=== PATIENT | female | born 1940 | race Caucasian/White ===

== ENCOUNTER 2016-09-23 11:45 | Inpatient (IN) | payer MEDICARE, BC ==
[2016-09-23] MEDS ORDERED: Ondansetron 4 MG/2 ML SDV IVPUSH ONE (12:32)
[2016-09-23] MEDS ORDERED: Pantoprazole 40 MG Vial IVPUSH ONE (12:35)
--- NOTE | 2016-09-23 12:41 | EDM.PDOC ---
ED HPI GI/ABDOMINAL - General Chief Complaint: Abdominal Pain Stated Complaint: [facility] Time Seen by Provider: 09/23/16 12:20 Source of Information: Reports: Patient History Limitations: Reports: No limitations - History of Present Illness INITIAL COMMENTS - FREE TEXT/NARRATIVE: Patient is a 76-year-old female presents ED complaining of generalized abdominal pain, nausea with vomiting, and severe constipation. States she has a history of constipation with taking narcotic pain medications chronically for her discomfort. States her last bowel movement was this past Friday described as small in nature and hard. There with straining present. She's had no bowel movement since has taken laxatives and stool softeners with no relief. She has been nauseated with poor appetite. She's had no passing of gas since Friday. She's noted abdomen has become distended with increasing pain noted. Emesis described as liquidy and clear. She has no history of small bowel obstruction. In addition she has a history of COPD and is on oxygen chronically. She denies any recent symptoms. Denies any chest pain, pain with urination, fever/ chills, or any additional complaints. She has a history of lung cancer to which she received chemotherapy and radiation. She states she is in remission at this point. Timing/Duration: Reports: Constant, Getting worse, Waxing/waning Location: generalized Quality: Reports: ache, cramping, stabbing Severity: moderate Worsens with: Reports: vomiting, palpation Context: Reports: other (none stated) Associated Symptoms (-Female): Reports: groin pain (bilateral inguinal hernias , no worsening with onset ), constipation, loss of appetite, malaise, nausea/ vomiting. Denies: diarrhea, bloody stools, fever/chills Treatments [employer]AF[employer]: Reports: Other (see below) (See HPI) - Related Data Allergies/ADRs: Allergies Allergy/AdvReac Type Severity Reaction Status Date / Time alendronate sodium AdvReac Nausea and Verified 09/23/16 12:10 [From Fosamax] Vomiting codeine AdvReac Nausea and Verified 09/23/16 12:10 Vomiting theophylline AdvReac Nausea and Verified 09/23/16 12:10 Vomiting cats Allergy Wheezing Uncoded 04/07/16 11:48 Home Meds: Home Meds Arformoterol [Brovana] 1 inh NEB BID 09/23/16 [History] Azithromycin [IJD: Azithromycin] 250 mg PO ASDIRECTED 09/23/16 [History] Budesonide [Pulmicort] 2 ml NEB BID 09/23/16 [History] Fluticasone Propionate [Flovent] 2 spray INH BID 09/23/16 [History] Furosemide 60 mg pe PO QAM 09/23/16 [History] Furosemide [Lasix] 40 mg PO QPM 09/23/16 [History] Guaifenesin/Pseudoephedrne HCl [Mucinex D ER 600-60 mg Tablet] 2 tab PO BID PRN 09/23/16 [History] LORazepam [Ativan] 0.5 mg PO BID PRN 09/23/16 [History] Modafinil 100 mg PO DAILY 09/23/16 [History] Montelukast [Singulair] 10 ampule PO QPM 09/23/16 [History] Omeprazole 40 mg PO BID 09/23/16 [History] Prednisone [IJD: Prednisone] 20 mg PO DAILY 09/23/16 [History] Pregabalin [Lyrica] 25 mg PO TID 09/23/16 [History] Ranitidine [Zantac] 150 mg PO BID 09/23/16 [History] Roflumilast [Daliresp] 500 mg PO DAILY 09/23/16 [History] Tiotropium [Spiriva HandiHaler] 1 cap INH DAILY 09/23/16 [History] oxyCODONE HCl/Acetaminophen [Percocet 10-325 mg Tablet] 1 tab PO BID PRN [History] Past Medical History Cardiovascular History: Reports: Hypertension Respiratory History: Reports: COPD, SOB Other Respiratory History: malignant neoplasm of the bronchus Gastrointestinal History: Reports: Chronic constipation, GERD Genitourinary History: Reports: Urinary incontinence, UTI, recurrent, Other ( see below) Other Genitourinary History: bladder prolapse 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: Musculoskeletal History: Reports: Fracture Other Musculoskeletal History: Fracture to pelvis and hip Psychiatric History: Reports: Anxiety, Depression Endocrine/Metabolic History: Reports: Osteoporosis Hematologic History: Reports: Anemia, Blood transfusion(s) Oncologic (Cancer) History: Reports: Lung - Infectious Disease History Infectious Disease History: Reports: Chicken pox, Measles, Mumps, Rubella, Shingles - Past Surgical History HEENT Surgical History: Reports: Cataract surgery, Detached retina Female Surgical History: Reports: Hysterectomy, Oophorectomy, Other (see below) Other Female Surgeries/Procedures: bladder mesh Social & Family History - Family History HEENT: Reports: Hearing impairment, Other (see below) Other HEENT Family History: tonsilectomy Cardiac: Reports: [place] Other Cardiac Family History: thinks father from [place] Respiratory: Reports: COPD Other Respiratory Family Hisory: mother : Reports: Renal disease/insufficiency OBGYN: Reports: Psychiatric: Reports: Anxiety, Depression Endocrine/Metabolic: Reports: Diabetes, type II Oncologic: Reports: Other (see below) Other Oncologic Family History: throat and kidney - Tobacco Use Smoking Status *Q: Former Smoker Years of Tobacco use: 20 Packs/Tins Daily: 1 Used Tobacco, but Quit: Yes Month Tobacco Last Used: 1994 Second Hand Smoke Exposure: No - Caffeine Use Caffeine Use: Reports: Coffee - Recreational Drug Use Recreational Drug Use: No - Living Situation & Occupation Living situation: Reports: single Occupation: retired ED ROS GENERAL - Review of Systems Review Of Systems: See Below Constitutional: Reports: malaise, decreased appetite. Denies: fever, chills Respiratory: Reports: Shortness of Breath (Chronic), Wheezing (Chronic), Cough ( Chronic), Sputum (Chronic) GI/Abdominal: Reports: Abdominal pain (Generalized), Anorexia, Constipation, Decreased appetite, Nausea, Vomiting. Denies: Diarrhea, Hematemesis, Stool incontinence : Reports: no symptoms Musculoskeletal: Reports: no symptoms Neurological: Reports: No Symptoms Psychiatric: Reports: No symptoms ED EXAM, GI/ABD - Physical Exam Exam: See Below Exam Limited By: No limitations General Appearance: alert, WD/WN, mild distress Nose: normal inspection Throat/Mouth: Normal inspection, Normal oropharynx, Normal voice, No airway compromise Neck: normal inspection, supple. No: lymphadenopathy (L), lymphadenopathy (R) Respiratory/Chest: no respiratory distress, no accessory muscle use, rhonchi, wheezing, other (Port located to the left upper chest.) Cardiovascular: normal peripheral pulses, regular rate, rhythm GI/Abdominal: hypoactive bowel sounds, tenderness (Generalized), distention, hernia (Bilateral inguinal hernias. Right greater than left. Bowel sounds noted to the right inguinal hernia, minimal pain on palpation.) Back Exam: normal inspection. No: CVA tenderness (L), CVA tenderness (R) Extremities: normal inspection, normal range of motion, non-tender Neurological: alert, oriented, normal cognition Psychiatric: normal affect, normal mood Skin Exam: Warm, Dry, Intact, Normal color Course - Vital Signs Last Recorded V/S: Last Vital Signs Temp 98.7 F 09/23/16 22:05 Pulse 118 H 09/23/16 22:05 Resp 30 H 09/23/16 22:05 BP 77/58 L 09/23/16 22:05 Pulse Ox 97 09/23/16 22:05 - Orders/Labs/Meds Orders: Active Orders 24 hr Category Date Time Status Patient Status Manage Transfer [TRANSFER] Routine ADT 09/23/16 21:36 Active Patient Status [ADT] Stat ADT 09/23/16 21:15 Active Ambulate [RC] PER UNIT ROUTINE Care 09/23/16 21:19 Active Antiembolic Devices [RC] PER UNIT ROUTINE Care 09/23/16 21:24 Active Antiembolic Devices [RC] PER UNIT ROUTINE Care 09/23/16 21:45 Active Murphy Catheter Insertion [Insert Urinary Catheter] [OM. Care 09/23/16 21:30 Ordered PC] Q24H NG [Gastrointestinal Tube Mgmt] [RC] INTERMITTENT Care 09/23/16 21:20 Active Notify Provider Consults [RC] ASDIRECTED Care 09/23/16 21:42 Active Oxygen Therapy [RC] ASDIRECTED Care 09/23/16 22:26 Active RT Aerosol Therapy [RC] ASDIRECTED Care 09/23/16 21:45 Active Urinary Catheter Assessment [RC] ASDIRECTED Care 09/23/16 21:22 Active Consult to Physician [CONS] Urgent Cons 09/23/16 21:41 Active Nothing Per Oral Diet [DIET] Diet 09/23/16 Breakfast Active Nothing per Oral Now Diet [DIET] Diet 09/23/16 Dinner Active CXR [Chest 1V Frontal] [CR] Routine Exams 09/23/16 22:30 Ordered CXR [Chest 1V Frontal] [CR] Routine Exams 09/24/16 06:00 Ordered CBC W/O DIFF,HEMOGRAM [HEME] Routine Lab 09/24/16 07:00 Ordered CMP [COMPREHENSIVE METABOLIC PN,CMP] [CHEM] Routine Lab 09/24/16 07:00 Ordered CRP [C-REACTIVE PROTEIN] [CHEM] DAILY Lab 09/24/16 05:00 Ordered CRP [C-REACTIVE PROTEIN] [CHEM] DAILY Lab 09/25/16 05:00 Ordered LACTIC ACID [CHEM] DAILY Lab 09/24/16 05:00 Ordered LACTIC ACID [CHEM] DAILY Lab 09/25/16 05:00 Ordered MAGNESIUM [CHEM] DAILY Lab 09/24/16 05:00 Ordered MAGNESIUM [CHEM] DAILY Lab 09/25/16 05:00 Ordered Arformoterol Med 09/24/16 09:00 Ordered 1 inh NEB BID Budesonide [Pulmicort] Med 09/24/16 06:00 Active 0.5 mg NEB BIDRT Fluticasone Propionate [Flovent] Med 09/24/16 09:00 Pending 2 spray INH BID HYDROmorphone [Dilaudid] Med 09/23/16 21:56 Active 1 mg IVPUSH Q2H PRN Ketorolac [Toradol] Med 09/25/16 02:00 Ordered 30 mg IVPUSH Q6H LORazepam [Ativan] Med 09/23/16 21:40 Active 0.5 mg IVPUSH Q8H PRN Lactated Ringers [Ringers, Lactated] 1,000 ml Med 09/23/16 21:45 Active IV ASDIRECTED Levalbuterol HCl [Xopenex] Med 09/24/16 09:00 Ordered 1.25 mg NEB QID Norepinephrine [Levophed] 4 mg Med 09/23/16 22:30 Active Dextrose 5% in Water 246 ml IV TITRATE Ondansetron [Zofran] Med 09/23/16 21:26 Active 4 mg IVPUSH Q8H PRN Pantoprazole [ProTONIX IV] Med 09/23/16 22:00 Active 40 mg IVPUSH Q12H Potassium Chloride [KCl 10 MEQ in Water 100 ML] 10 meq Med 09/23/16 15:45 Active Premix Bag 1 bag IV ASDIRECTED Sodium Chloride 0.9% [Normal Saline] 1,000 ml Med 09/23/16 12:45 Active IV ASDIRECTED Sodium Chloride 0.9% [Normal Saline] 1,000 ml Med 09/24/16 01:00 Active IV ONETIME Sodium Chloride 0.9% [Saline Flush] Med 09/23/16 14:22 Active 10 ml FLUSH ONETIME PRN cefOXitin [Mefoxin in Dextrose,Iso-Osm 1 GM/50 ML] 1 gm Med 09/24/16 00:00 Active Premix Bag 1 bag IV Q8H methylPREDNISolone Sod Succ [Solu-MEDROL] Med 09/23/16 22:00 Active 40 mg IVPUSH Q8H metroNIDAZOLE/Normal Saline [Flagyl 500 MG in NS 100 ML Med 09/23/16 22:00 Active ] 500 mg Premix Bag 1 bag IV Q8H Assertion Communication Order [AST] Click To Edit Ot 09/23/16 21:23 Ordered NG [Nasogastric Orogastric Tube Insertion] [OM.PC] Ot 09/23/16 15:20 Ordered Routine SCD [Sequential Compression Device] [OM.PC] Routine Ot 09/23/16 21:23 Ordered SCD [Sequential Compression Device] [OM.PC] Routine Ot 09/23/16 21:45 Ordered Schedule Procedure [COMM] Stat Ot 09/23/16 16:30 Ordered Medication Orders Budesonide (Pulmicort) 0.5 mg NEB BIDRT KIM Hydromorphone HCl (Dilaudid) 1 mg IVPUSH Q2H PRN PRN Reason: Pain (moderate 4-6) Sodium Chloride (Normal Saline) 1,000 mls @ 125 mls/hr IV ASDIRECTED [facility] Last Admin: 09/23/16 13:09 Dose: 125 mls/hr Potassium Chloride 10 meq/ (Premix) 100 mls @ 100 mls/hr IV ASDIRECTED [facility] Last Admin: 09/23/16 16:04 Dose: 100 mls/hr Cefoxitin Sodium 1 gm/ Premix 50 mls @ 100 mls/hr IV Q8H [facility] Last Admin: 09/23/16 23:08 Dose: 100 mls/hr Lactated Ringer's (Ringers, Lactated) 1,000 mls @ 75 mls/hr IV ASDIRECTED [facility] Last Admin: 09/23/16 21:46 Dose: 75 mls/hr Metronidazole 500 mg/ Premix 100 mls @ 100 mls/hr IV Q8H [facility] Last Admin: 09/23/16 21:46 Dose: 100 mls/hr Norepinephrine Bitartrate 4 mg (/ Dextrose/Water) 250 mls @ 7.5 mls/hr IV TITRATE KIM; 2 MCG/MIN PRN Reason: Protocol Sodium Chloride (Normal Saline) 1,000 mls @ 999 mls/hr IV ONETIME ONE Stop: 09/24/16 02:00 Last Admin: 09/23/16 23:21 Dose: 999 mls/hr Ketorolac Tromethamine (Toradol) 30 mg IVPUSH Q6H KIM Levalbuterol HCl (Xopenex) 1.25 mg NEB QID KIM Lorazepam (Ativan) 0.5 mg IVPUSH Q8H PRN PRN Reason: Anxiety Methylprednisolone Sodium Succinate (Solu-Medrol) 40 mg IVPUSH Q8H KIM Last Admin: 09/23/16 23:07 Dose: 40 mg Non-Formulary Medication (Arformoterol) 1 inh NEB BID KIM Non-Formulary Medication (Fluticasone Propionate [Flovent]) 2 spray INH BID KIM Ondansetron HCl (Zofran) 4 mg IVPUSH Q8H PRN PRN Reason: Nausea Last Admin: 09/23/16 21:37 Dose: 4 mg Pantoprazole Sodium (Protonix Iv) 40 mg IVPUSH Q12H KIM Last Admin: 09/23/16 23:16 Dose: 40 mg Sodium Chloride (Saline Flush) 10 ml FLUSH ONETIME PRN PRN Reason: IV FLUSH Labs: Laboratory Tests 09/23/16 09/23/16 09/23/16 Range/Units 12:47 12:47 15:03 WBC 25.79 H (3.98-10.04) K/mm3 RBC 4.78 (3.98-5.22) M/mm3 Hgb 14.7 (11.2-15.7) gm/L Hct 45.3 H (34.1-44.9) % MCV 94.8 (79.4-94.8) fl MCH 30.8 (25.6-32.2) pg MCHC 32.5 (32.2-35.5) g/dl RDW Std Deviation 45.8 (36.4-46.3) fL Plt Count 410 H (182-369) K/mm3 MPV 8.8 L (9.4-12.3) fl Neut % (Auto) 88.9 H (34.0-71.1) % Lymph % (Auto) 5.9 L (19.3-51.7) % [place] % (Auto) 4.5 L (4.7-12.5) % Eos % (Auto) 0.3 L (0.7-5.8) Baso % (Auto) 0.1 (0.1-1.2) % Neut # (Auto) 22.92 H (1.56-6.13) K/mm3 Lymph # (Auto) 1.53 (1.18-3.74) K/mm3 [place] # (Auto) 1.15 H (0.24-0.36) K/mm3 Eos # (Auto) 0.08 (0.04-0.36) K/mm3 Baso # (Auto) 0.03 (0.01-0.08) K/mm3 Manual Slide Review Abnormal smear Sodium 138 (136-145) mEq/L Potassium 2.9 L (3.5-5.1) mEq/L Chloride 96 L (98-107) mEq/L Carbon Dioxide 36 H (21-32) mEq/L Anion Gap 8.9 (5-15) BUN 23 H (7-18) mg/dL Creatinine 0.9 (0.55-1.02) mg/dL Est Cr Clr Drug Dosing TNP Estimated GFR (MDRD) > 60 (>60) mL/min BUN/Creatinine Ratio 25.6 H (14-18) Glucose 161 H (83-115) mg/dL Lactic Acid 2.1 H (0.4-2.0) mmol/L Calcium 10.5 H (8.5-10.1) mg/dL Total Bilirubin 0.9 (0.2-1.0) mg/dL AST 25 (15-37) U/L ALT 28 (14-59) U/L Alkaline Phosphatase 60 (46-116) U/L C-Reactive Protein 1.2 H* (<1.0) mg/dL Total Protein 6.5 (6.4-8.2) g/dl Albumin 3.3 L (3.4-5.0) g/dl Globulin 3.2 gm/dL Albumin/Globulin Ratio 1.0 (1-2) Lipase 116 (73-393) U/L Urine Color (Yellow) Urine Appearance (Clear) Urine pH (5.0-8.0) Ur Specific [place] (1.005-1.030) Urine Protein (Negative) Urine Glucose (UA) (Negative) Urine Ketones (Negative) Urine Occult Blood (Negative) Urine Nitrite (Negative) Urine Bilirubin (Negative) Urine Urobilinogen (0.2-1.0) Ur Leukocyte Esterase (Negative) Urine RBC (0-5) /hpf Urine WBC (0-5) /hpf Ur Epithelial Cells Ur Squamous Epith Cells (0-5) /hpf Urine Bacteria (FEW) /hpf Urine Mucus (FEW) /hpf 09/23/16 Range/Units 16:10 WBC (3.98-10.04) K/mm3 RBC (3.98-5.22) M/mm3 Hgb (11.2-15.7) gm/L Hct (34.1-44.9) % MCV (79.4-94.8) fl MCH (25.6-32.2) pg MCHC (32.2-35.5) g/dl RDW Std Deviation (36.4-46.3) fL Plt Count (182-369) K/mm3 MPV (9.4-12.3) fl Neut % (Auto) (34.0-71.1) % Lymph % (Auto) (19.3-51.7) % [place] % (Auto) (4.7-12.5) % Eos % (Auto) (0.7-5.8) Baso % (Auto) (0.1-1.2) % Neut # (Auto) (1.56-6.13) K/mm3 Lymph # (Auto) (1.18-3.74) K/mm3 [place] # (Auto) (0.24-0.36) K/mm3 Eos # (Auto) (0.04-0.36) K/mm3 Baso # (Auto) (0.01-0.08) K/mm3 Manual Slide Review Sodium (136-145) mEq/L Potassium (3.5-5.1) mEq/L Chloride (98-107) mEq/L Carbon Dioxide (21-32) mEq/L Anion Gap (5-15) BUN (7-18) mg/dL Creatinine (0.55-1.02) mg/dL Est Cr Clr Drug Dosing Estimated GFR (MDRD) (>60) mL/min BUN/Creatinine Ratio (14-18) Glucose (83-115) mg/dL Lactic Acid (0.4-2.0) mmol/L Calcium (8.5-10.1) mg/dL Total Bilirubin (0.2-1.0) mg/dL AST (15-37) U/L ALT (14-59) U/L Alkaline Phosphatase (46-116) U/L C-Reactive Protein (<1.0) mg/dL Total Protein (6.4-8.2) g/dl Albumin (3.4-5.0) g/dl Globulin gm/dL Albumin/Globulin Ratio (1-2) Lipase (73-393) U/L Urine Color Yellow (Yellow) Urine Appearance Clear (Clear) Urine pH 7.5 (5.0-8.0) Ur Specific [place] 1.020 (1.005-1.030) Urine Protein Trace H (Negative) Urine Glucose (UA) Negative (Negative) Urine Ketones Negative (Negative) Urine Occult Blood Trace-intact H (Negative) Urine Nitrite Negative (Negative) Urine Bilirubin Negative (Negative) Urine Urobilinogen 0.2 (0.2-1.0) Ur Leukocyte Esterase Negative (Negative) Urine RBC 0-5 (0-5) /hpf Urine WBC 0-5 (0-5) /hpf Ur Epithelial Cells Not Reportable Ur Squamous Epith Cells 0-5 (0-5) /hpf Urine Bacteria Few (FEW) /hpf Urine Mucus Few (FEW) /hpf Meds: Medications Generic Name Dose Route Start Last Admin Trade Name Freq PRN Reason Stop Dose Admin Budesonide 0.5 mg 09/24/16 06:00 Pulmicort NEB BIDRT KIM Hydromorphone HCl 1 mg 09/23/16 21:56 Dilaudid IVPUSH Q2H PRN Pain (moderate 4-6) Sodium Chloride 1,000 mls @ 125 mls/hr 09/23/16 12:45 09/23/16 13:09 Normal Saline IV 125 mls/hr ASDIRECTED KIM Administration Potassium Chloride 10 meq/ 100 mls @ 100 mls/hr 09/23/16 15:45 09/23/16 16:04 Premix IV 100 mls/hr ASDIRECTED KIM Administration Cefoxitin Sodium 1 gm/ Premix 50 mls @ 100 mls/hr 09/24/16 00:00 09/23/16 23: 08 IV 100 mls/hr Q8H KMI Administration Lactated Ringer's 1,000 mls @ 75 mls/hr 09/23/16 21:45 09/23/16 21:46 Ringers, Lactated IV 75 mls/hr ASDIRECTED KIM Administration Metronidazole 500 mg/ Premix 100 mls @ 100 mls/hr 09/23/16 22:00 09/23/16 21: 46 IV 100 mls/hr Q8H KIM Administration Norepinephrine Bitartrate 4 mg 250 mls @ 7.5 mls/hr 09/23/16 22:30 / Dextrose/Water IV TITRATE KIM Protocol 2 MCG/MIN Sodium Chloride 1,000 mls @ 999 mls/hr 09/24/16 01:00 09/23/16 23:21 Normal Saline IV 09/24/16 02:00 999 mls/hr ONETIME ONE Administration Ketorolac Tromethamine 30 mg 09/25/16 02:00 Toradol IVPUSH Q6H KIM Levalbuterol HCl 1.25 mg 09/24/16 09:00 Xopenex NEB QID KIM Lorazepam 0.5 mg 09/23/16 21:40 Ativan IVPUSH Q8H PRN Anxiety Methylprednisolone Sodium Succinate 40 mg 09/23/16 22:00 09/23/16 23:07 Solu-Medrol IVPUSH 40 mg Q8H KIM Administration Non-Formulary Medication 1 inh 09/24/16 09:00 Arformoterol NEB BID KIM Non-Formulary Medication 2 spray 09/24/16 09:00 Fluticasone Propionate [Flovent] INH BID KIM Ondansetron HCl 4 mg 09/23/16 21:26 09/23/16 21:37 Zofran IVPUSH 4 mg Q8H PRN Administration Nausea Pantoprazole Sodium 40 mg 09/23/16 22:00 09/23/16 23:16 Protonix Iv IVPUSH 40 mg Q12H KIM Administration Sodium Chloride 10 ml 09/23/16 14:22 Saline Flush FLUSH ONETIME PRN IV FLUSH Discontinued Medications Generic Name Dose Route Start Last Admin Trade Name Freq PRN Reason Stop Dose Admin Albuterol 2.5 mg 09/23/16 18:37 09/23/16 18:42 Proventil Neb Soln NEB 09/23/16 18:38 2.5 mg ONETIME ONE Administration Albuterol Confirm 09/23/16 18:41 09/23/16 21:31 Proventil Neb Soln Administered 09/23/16 18:42 Not Given Dose 2.5 mg .ROUTE .STK-MED ONE Bupivacaine HCl Confirm 09/23/16 18:57 09/23/16 19:41 Marcaine 0.5% Administered 09/23/16 18:58 8.5 ml Dose Administration 30 ml .ROUTE .STK-MED ONE Cefazolin Sodium Confirm 09/23/16 19:08 Ancef Administered 09/23/16 19:09 Dose 2 gm .ROUTE .STK-MED ONE Diatrizoate Meglum/Diatrizoate Sod 90 ml 09/23/16 14:22 09/23/16 14:45 Gastrografin 37% PO 09/23/16 14:23 90 ml ONETIME ONE Administration Furosemide 10 mg 09/23/16 22:08 Lasix IVPUSH 09/23/16 22:09 NOW ONE Furosemide 10 mg 09/24/16 09:00 Lasix IVPUSH 09/24/16 09:01 NOW ONE Furosemide 10 mg 09/23/16 22:45 Lasix IVPUSH 09/23/16 22:46 NOW ONE Hydrocortisone Sodium Succinate 50 mg 09/23/16 22:00 Solu-Cortef IVPUSH Q6H KIM Hydromorphone HCl 0.5 mg 09/23/16 13:07 09/23/16 13:12 Dilaudid IVPUSH 09/23/16 13:08 0.5 mg ONETIME ONE Administration Hydromorphone HCl 0.5 mg 09/23/16 14:07 09/23/16 14:12 Dilaudid IVPUSH 09/23/16 14:08 0.5 mg ONETIME ONE Administration Hydromorphone HCl 0.5 mg 09/23/16 21:24 09/23/16 21:37 Dilaudid IVPUSH 0.5 mg Q2H PRN Administration Pain Hydromorphone HCl 1 mg 09/23/16 21:39 09/23/16 22:35 Dilaudid IVPUSH 09/23/16 21:40 Not Given ONETIME ONE Sodium Chloride 500 mls @ 500 mls/hr 09/23/16 14:36 09/23/16 21:30 Normal Saline IV 09/23/16 15:35 Not Given .BOLUS ONE Cefoxitin Sodium 2 gm/ Premix 50 mls @ 100 mls/hr 09/23/16 16:00 09/23/16 16: 11 IV 09/23/16 16:29 100 mls/hr ONETIME ONE Administration Lidocaine HCl Confirm 09/23/16 17:09 Xylocaine-Mpf 1% Administered 09/23/16 17:10 Dose 2 mls @ as directed .ROUTE .STK-MED ONE Sodium Chloride 500 mls @ 999 mls/hr 09/23/16 17:40 09/23/16 17:46 Normal Saline IV 09/23/16 18:10 999 mls/hr ONETIME ONE Administration Sodium Chloride 1,000 mls @ 999 mls/hr 09/23/16 18:34 09/23/16 21:31 Normal Saline IV 09/23/16 19:34 Not Given ONETIME ONE Lactated Ringer's Confirm 09/23/16 20:08 Ringers, Lactated Administered 09/23/16 20:09 Dose 1,000 mls @ as directed .ROUTE .STK-MED ONE Albumin Human 25 gm in 100 mls @ 100 mls/hr 09/24/16 02:00 Flexbumin 25% IV 09/24/16 02:59 ONETIME ONE Albumin Human 25 gm in 100 mls @ 100 mls/hr 09/23/16 22:15 09/23/16 23:05 Flexbumin 25% IV 09/23/16 23:14 100 mls/hr ONETIME ONE Administration Albumin Human Confirm 09/23/16 22:18 09/23/16 22:36 Flexbumin 25% Administered 09/23/16 22:19 Not Given Dose 50 mls @ as directed .ROUTE .STK-MED ONE Iopamidol 100 ml 09/23/16 14:22 09/23/16 14:46 Isovue-300 (61%) IVPUSH 09/23/16 14:23 100 ml ONETIME ONE Administration Ketamine HCl Confirm 09/23/16 19:09 Ketalar Administered 09/23/16 19:10 Dose 500 mg .ROUTE .STK-MED ONE Ketorolac Tromethamine 60 mg 09/23/16 21:58 09/23/16 22:14 Toradol IVPUSH 09/23/16 21:59 60 mg ONETIME ONE Administration Lidocaine HCl Confirm 09/23/16 18:57 09/23/16 19:41 Xylocaine-Mpf 1% Administered 09/23/16 18:58 8.5 ml Dose Administration 30 ml .ROUTE .STK-MED ONE Methylprednisolone Sodium Succinate Confirm 09/23/16 19:28 Solu-Medrol Administered 09/23/16 19:29 Dose 125 mg .ROUTE .STK-MED ONE Midazolam HCl Confirm 09/23/16 19:08 Versed 1 Mg/Ml Administered 09/23/16 19:09 Dose 2 mg .ROUTE .STK-MED ONE Ondansetron HCl 4 mg 09/23/16 12:32 09/23/16 13:10 Zofran IVPUSH 09/23/16 12:33 4 mg ONETIME ONE Administration Pantoprazole Sodium 40 mg 09/23/16 12:35 09/23/16 13:11 Protonix Iv IVPUSH 09/23/16 12:36 40 mg ONETIME ONE Administration Propofol Confirm 09/23/16 17:09 Diprivan 20 Ml Administered 09/23/16 17:10 Dose 200 mg .ROUTE .STK-MED ONE - Re-Assessments/Exams Free Text/Narrative Re-Assessment/Exam: IV was started by ambulance service. Will start normal saline 125 mL per hour, Protonix 40 mg IVP, and Zofran 4 mg IVP. Initial labs and studies include CBC, chem 14, CRP, lipase, and CT abdomen/pelvis with oral and IV contrast. 09/23/16 12:44 09/23/16 13:08 Patient complaining of pain requesting IV pain medications. Ordered dilaudid 0.5mg IVP. 09/23/16 13:48 White blood cell count 25.79, hemoglobin is 14.7, platelet counts 410, neutrophil percentage 80.9, neutrophil number is 22.92, sodium is 138, potassium is 2.9, CO2 36, BUN is 23, creatinine 0.9, CRP is 1.2, and lipase is 116. 09/23/16 14:37 Patient has not been drinking the oral contrast as instructed. She continues to complain of abdominal discomfort. She does not appear in physical distress. Her blood pressure after administration of last IV Dilaudid has caused the patient to be hypotensive. Blood pressures have been running in the low 90s systolic. Have ordered IV bolus of 500 mls to be pushed him. Ordered a lactic acid as well. 09/23/16 15:22 CT of the abdomen and pelvis impression: Dilated small bowel loops. This is felt to be caused by strangulation of bowel within the left femoral hernia. Larger right femoral hernia seen which contains no bowel. Other incidental findings as noted above. Ordered insertion of nasal gastric tube. Discussed patient with Dr. Sanford road conductor general surgeon he will see the patient in the E.D. Requests starting cefoxitin. I have ordered 2 grams cefoxitin IV. 09/23/16 15:40 Potassium 2.9, 10 meq IVP ordered. 09/23/16 15:44 OR staff has been called for urgent femoral hernia repair. Dr. Sanford has one case to attend to prior to taking patient to surgery. 09/23/16 1638 EKG sinus tachycardia rate of 118, low-voltage, Q waves anterior leads. NO acute ST changes noted. 09/23/16 17:46 Patient has requested to be transported to [facility] for further evaluation and treatment. Anesthesia is also concerned due to patients lung disease and hypotension is at high risk for complications. Family does not want the patient be transported by air to take caused a request transport via ambulance. [address] Baker General Surgeon [facility], suggests patient have surgery here due to concerns of poor outcome due to delay in definitive treatment. Patient is showing signs of septicemia with elevated heart rate and hypotension. He requested I speak with Dr. Sanford again to have surgery performed here. Dr. Sanofrd agrees and states his hands are tied due to anesthesia not wanting to put her to sleep. I have discussed with family and patient that she is high risk for complications if definitive treatment is not initiated here. They have agreed to be transported by air if surgery will not be performed here in [place]. [facility] has been placed on standby. [id number] is at patients bedside. He has spoken with Dr. Baker. Patient along with family has agreed to have surgery here in [place]. Operating room staff has been notified. 09/23/16 19:14 Patient has been transported to surgery. Patient received 3 L of NS while in the ED. Patient was started on lactated ringers prior to surgery. 09/23/16 23:35 Departure - Departure Time of Disposition: 15:44 Disposition: DC/Tfer to [facility] Clinical Impression: Small bowel strangulation, Hypokalemia, Abdominal pain in female Nausea & vomiting Qualifiers: Vomiting type: bilious vomiting Qualified Code(s): R11.14 - Bilious vomiting - My Orders Last 24 Hours: My Active Orders 09/23/16 12:45 Sodium Chloride 0.9% [Normal Saline] 1,000 ml IV ASDIRECTED 09/23/16 14:22 Sodium Chloride 0.9% [Saline Flush] 10 ml FLUSH ONETIME PRN 09/23/16 15:20 NG [Nasogastric Orogastric Tube Insertion] [OM.PC] Routine 09/23/16 15:45 Potassium Chloride [KCl 10 MEQ in Water 100 ML] 10 meq Premix Bag 1 bag IV ASDIRECTED 09/23/16 Dinner Nothing per Oral Now Diet [DIET] - Assessment/Plan Last 24 Hours: My Active Orders 09/23/16 12:45 Sodium Chloride 0.9% [Normal Saline] 1,000 ml IV ASDIRECTED 09/23/16 14:22 Sodium Chloride 0.9% [Saline Flush] 10 ml FLUSH ONETIME PRN 09/23/16 15:20 NG [Nasogastric Orogastric Tube Insertion] [OM.PC] Routine 09/23/16 15:45 Potassium Chloride [KCl 10 MEQ in Water 100 ML] 10 meq Premix Bag 1 bag IV ASDIRECTED 09/23/16 Dinner Nothing per Oral Now Diet [DIET]
[2016-09-23] MEDS ORDERED: Sodium Chloride 0.9% 1,000 ML IV SCH (12:45)
[2016-09-23] MEDS ORDERED: HYDROmorphone 0.5 MG/0.5 ML Syringe IVPUSH ONE ×2 (13:07→14:07)
[2016-09-23] MEDS ORDERED: Diatrizoate Meglumine/Diatrizoate Sodium 37% 120 ML Bottle PO ONE (14:22)
[2016-09-23] MEDS ORDERED: Sodium Chloride 0.9% 10 ML Syringe FLUSH PRN (14:22)
[2016-09-23] MEDS ORDERED: Iopamidol 612 MG/ML 100 ML Bottle IVPUSH ONE (14:22)
[2016-09-23] MEDS ORDERED: Sodium Chloride 0.9% 500 ML IV ONE ×2 (14:36→17:40)
--- NOTE | 2016-09-23 15:14 | CT ---
CT abdomen and pelvis Technique: Multiple axial sections were obtained from above the dome of the diaphragm inferiorly through the pubic symphysis. No oral contrast has been given. Intravenous contrast was utilized. Comparison: Previous CT abdomen and pelvis exam of 08/18/13 is available. Findings: Dilated small bowel loops are seen. Left femoral hernia is seen containing a loop of small bowel. This is felt to cause incarceration and the small bowel obstruction. Larger right sided femoral hernia is seen which contains no bowel. Visualized lung bases shows nothing acute. Cyst is identified within the left lobe of the liver measuring 3.7 cm. Smaller cyst is noted within the right lobe of the liver next to the gallbladder measuring 1.0 cm. No additional abnormality is appreciated within the liver. Spleen size is normal. Pancreas not optimally seen and is mostly obscured by the small bowel dilatation. Adrenal glands show no nodule. Cyst noted within the right kidney measuring about 1.5 cm. Smaller cyst noted within the left kidney measuring 7 mm. 2 smaller cysts are noted within the left kidney. Contrast excretion is seen from both kidneys. Aorta shows atherosclerotic change. Atherosclerotic change continues into the iliac vessels. No aneurysm is seen. No retroperitoneal adenopathy or mesenteric abnormalities are seen. Deformity from old fractures within the superior and inferior pubic rami. Degenerative change is scattered within the spine. Small amount of fluid is seen within the pelvis likely representing reactive fluid from the small bowel obstruction. Impression: 1. Dilated small bowel loops. This is felt to be caused by strangulation from a left femoral hernia. Larger right femoral hernia seen which contains no bowel. 2. Other incidental findings as noted above. Diagnostic code #5
[2016-09-23] MEDS ORDERED: cefOXitin 2 GM in Sodium Chloride 0.9% 100 ML IV ONE (15:20)
[2016-09-23] MEDS ORDERED: Potassium Chloride 10 MEQ in Premix Bag 1 BAG IV SCH (15:45)
[2016-09-23] MEDS ORDERED: cefOXitin 2 GM in Premix Bag 1 BAG IV ONE (16:00)
[2016-09-23] MEDS ORDERED: Lidocaine 1% 0 ML ONE (17:09)
[2016-09-23] MEDS ORDERED: Propofol 200 MG/20 ML SDV ONE (17:09)
--- NOTE | 2016-09-23 18:00 | PCM.SN ---
- Free Text/Narrative Note: 09/23/16 1730 Visited with patient and family regarding anesthesia. Patient has been sick for 4 days. BP88/40. Patient on O2 . Lungs rales bilaterally. Patient appears very ill looking. Family informed about no pediatric physical therapy assistant or project development coordinator here and they wish to go to [place] for their surgery. K 2.9 O2 Sat 94 on 2 Liters. Skin cool. Bluish color to legs. WBC 25.79 Plt 410.Family said she has so many other issues that she is always hard to manage. I feel the patient is too high risk for this facility. Dr. Sanford notified and agrees .Saundra [place]
[2016-09-23] MEDS ORDERED: Sodium Chloride 0.9% 1,000 ML IV ONE (18:34)
[2016-09-23] MEDS ORDERED: Albuterol 0.083% 2.5 MG/3 ML Neb Soln NEB ONE (18:37)
[2016-09-23] MEDS ORDERED: Albuterol 0.083% 2.5 MG/3 ML Neb Soln ONE (18:41)
--- NOTE | 2016-09-23 18:41 | PCM.PREANE ---
Preanesthetic Assessment - Anesthesia/Transfusion/Family Hx Anesthesia History: Prior Anesthesia Without Reaction Family History of Anesthesia Reaction: No Transfusion History: Prior Transfusion Without Reaction - Review of Systems General: Fever, Weakness, Chills Pulmonary: Shortness of Breath, Wheezing, Cough Cardiovascular: Dyspnea on Exertion Gastrointestinal: Abdominal pain, Decreased appetite, Nausea, Vomiting Neurological: Weakness Other: Reports: Depression, Anxiety - Physical Assessment NPO Status Date: 09/23/16 NPO Status Time: 11:00 (waterq2) O2 Sat by Pulse Oximetry: 100 Respiratory Rate: 18 Vital Signs: Last Vital Signs Temp 96.9 F 09/23/16 11:47 Pulse 105 H 09/23/16 18:17 Resp 18 09/23/16 18:17 BP 103/76 09/23/16 18:17 Pulse Ox 100 09/23/16 18:17 Height: 5 ft 1 in Weight: 45.359 kg ASA Class: 4E Mental Status: Alert & Oriented x3 Airway Class: Mallampati = 2 Dentition: Reports: Edentulous Thyro-Mental Finger Breadths: 3 Mouth Opening Finger Breadths: 3 (mouth very dry- ) ROM/Head Extension: Full Lungs: Decreased breath sounds, Crackles, Rales, Wheezing (albuteral treatment preop given.) Cardiovascular: Regular Rate, Regular Rhythm - Lab Values: Laboratory Last Values WBC 25.79 K/mm3 (3.98-10.04) H 09/23/16 12:47 RBC 4.78 M/mm3 (3.98-5.22) 09/23/16 12:47 Hgb 14.7 gm/L (11.2-15.7) 09/23/16 12:47 Hct 45.3 % (34.1-44.9) H 09/23/16 12:47 MCV 94.8 fl (79.4-94.8) 09/23/16 12:47 MCH 30.8 pg (25.6-32.2) 09/23/16 12:47 MCHC 32.5 g/dl (32.2-35.5) 09/23/16 12:47 RDW Std Deviation 45.8 fL (36.4-46.3) 09/23/16 12:47 Plt Count 410 K/mm3 (182-369) H 09/23/16 12:47 MPV 8.8 fl (9.4-12.3) L 09/23/16 12:47 Neut % (Auto) 88.9 % (34.0-71.1) H 09/23/16 12:47 Lymph % (Auto) 5.9 % (19.3-51.7) L 09/23/16 12:47 Fisher % (Auto) 4.5 % (4.7-12.5) L 09/23/16 12:47 Eos % (Auto) 0.3 (0.7-5.8) L 09/23/16 12:47 Baso % (Auto) 0.1 % (0.1-1.2) 09/23/16 12:47 Neut # (Auto) 22.92 K/mm3 (1.56-6.13) H 09/23/16 12:47 Lymph # (Auto) 1.53 K/mm3 (1.18-3.74) 09/23/16 12:47 Fisher # (Auto) 1.15 K/mm3 (0.24-0.36) H 09/23/16 12:47 Eos # (Auto) 0.08 K/mm3 (0.04-0.36) 09/23/16 12:47 Baso # (Auto) 0.03 K/mm3 (0.01-0.08) 09/23/16 12:47 Manual Slide Review Abnormal smear 09/23/16 12:47 Sodium 138 mEq/L (136-145) 09/23/16 12:47 Potassium 2.9 mEq/L (3.5-5.1) L 09/23/16 12:47 Chloride 96 mEq/L (98-107) L 09/23/16 12:47 Carbon Dioxide 36 mEq/L (21-32) H 09/23/16 12:47 Anion Gap 8.9 (5-15) 09/23/16 12:47 BUN 23 mg/dL (7-18) H 09/23/16 12:47 Creatinine 0.9 mg/dL (0.55-1.02) 09/23/16 12:47 Est Cr Clr Drug Dosing TNP 09/23/16 12:47 Estimated GFR (MDRD) > 60 mL/min (>60) 09/23/16 12:47 BUN/Creatinine Ratio 25.6 (14-18) H 09/23/16 12:47 Glucose 161 mg/dL (83-115) H 09/23/16 12:47 Lactic Acid 2.1 mmol/L (0.4-2.0) H 09/23/16 15:03 Calcium 10.5 mg/dL (8.5-10.1) H 09/23/16 12:47 Total Bilirubin 0.9 mg/dL (0.2-1.0) 09/23/16 12:47 AST 25 U/L (15-37) 09/23/16 12:47 ALT 28 U/L (14-59) 09/23/16 12:47 Alkaline Phosphatase 60 U/L (46-116) 09/23/16 12:47 C-Reactive Protein 1.2 mg/dL (<1.0) H* 09/23/16 12:47 Total Protein 6.5 g/dl (6.4-8.2) 09/23/16 12:47 Albumin 3.3 g/dl (3.4-5.0) L 09/23/16 12:47 Globulin 3.2 gm/dL 09/23/16 12:47 Albumin/Globulin Ratio 1.0 (1-2) 09/23/16 12:47 Lipase 116 U/L (73-393) 09/23/16 12:47 Urine Color Yellow (Yellow) 09/23/16 16:10 Urine Appearance Clear (Clear) 09/23/16 16:10 Urine pH 7.5 (5.0-8.0) 09/23/16 16:10 Ur Specific [place] 1.020 (1.005-1.030) 09/23/16 16:10 Urine Protein Trace (Negative) H 09/23/16 16:10 Urine Glucose (UA) Negative (Negative) 09/23/16 16:10 Urine Ketones Negative (Negative) 09/23/16 16:10 Urine Occult Blood Trace-intact (Negative) H 09/23/16 16:10 Urine Nitrite Negative (Negative) 09/23/16 16:10 Urine Bilirubin Negative (Negative) 09/23/16 16:10 Urine Urobilinogen 0.2 (0.2-1.0) 09/23/16 16:10 Ur Leukocyte Esterase Negative (Negative) 09/23/16 16:10 Urine RBC 0-5 /hpf (0-5) 09/23/16 16:10 Urine WBC 0-5 /hpf (0-5) 09/23/16 16:10 Ur Epithelial Cells Not Reportable 09/23/16 16:10 Ur Squamous Epith Cells 0-5 /hpf (0-5) 09/23/16 16:10 Urine Bacteria Few /hpf (FEW) 09/23/16 16:10 Urine Mucus Few /hpf (FEW) 09/23/16 16:10 - Imaging/EKG Impressions: 09/23/16EKG Sinus rhythm- reviewed - Allergies Allergies/Adverse Reactions: Allergies Allergy/AdvReac Type Severity Reaction Status Date / Time alendronate sodium AdvReac Nausea and Verified 09/23/16 12:10 [From Fosamax] Vomiting codeine AdvReac Nausea and Verified 09/23/16 12:10 Vomiting theophylline AdvReac Nausea and Verified 09/23/16 12:10 Vomiting cats Allergy Wheezing Uncoded 04/07/16 11:48 - Blood Blood Available: No - Acknowledgements Anesthesia Type Planned: MAC (Discussed with Dr Sanford. He prefers mac with local. Patient not accepted in [place] for surgery. Requested to do case here.) Pt an Appropriate Candidate for the Planned Anesthesia: Yes Alternatives and Risks of Anesthesia Discussed w Pt/Guardian: Yes Pt/Guardian Understands and Agrees with Anesthesia Plan: Yes PreAnesthesia Questionnaire Cardiovascular History: Reports: Hypertension, SOB on exertion Respiratory History: Reports: COPD, SOB, Other (see below) (on oxygen at home 3 liters for years) Other Respiratory History: malignant neoplasm of the bronchus Gastrointestinal History: Reports: Chronic constipation, GERD Genitourinary History: Reports: Urinary incontinence, UTI, recurrent, Other ( see below) Other Genitourinary History: bladder prolapse MILL TURNER History: Reports: Musculoskeletal History: Reports: Fracture, Other (see below) (back pain) Other Musculoskeletal History: Fracture to pelvis and hip Psychiatric History: Reports: Anxiety, Depression Endocrine/Metabolic History: Reports: Osteoporosis Hematologic History: Reports: Anemia, Blood transfusion(s) Oncologic (Cancer) History: Reports: Lung (had radiation and chemo) - Infectious Disease History Infectious Disease History: Reports: Chicken pox, Measles, Mumps, Rubella, Shingles - Past Surgical History HEENT Surgical History: Reports: Cataract surgery, Detached retina Female Surgical History: Reports: Hysterectomy, Oophorectomy, Other (see below) Other Female Surgeries/Procedures: bladder mesh Musculoskeletal Surgical History: Reports: Other (see below) (mike) - SUBSTANCE USE Smoking Status *Q: Former Smoker Tobacco Use Within Last Twelve Months: Cigarettes Second Hand Smoke Exposure: No Days Per Week of Alcohol Use: 0 Recreational Drug Use History: No - HOME MEDS Home Medications: Home Meds Arformoterol [Brovana] 1 inh NEB BID 09/23/16 [History] Azithromycin [IJD: Azithromycin] 250 mg PO ASDIRECTED 09/23/16 [History] Budesonide [Pulmicort] 2 ml NEB BID 09/23/16 [History] Fluticasone Propionate [Flovent] 2 spray INH BID 09/23/16 [History] Furosemide 60 mg pe PO QAM 09/23/16 [History] Furosemide [Lasix] 40 mg PO QPM 09/23/16 [History] Guaifenesin/Pseudoephedrne HCl [Mucinex D ER 600-60 mg Tablet] 2 tab PO BID PRN 09/23/16 [History] LORazepam [Ativan] 0.5 mg PO BID PRN 09/23/16 [History] Modafinil 100 mg PO DAILY 09/23/16 [History] Montelukast [Singulair] 10 ampule PO QPM 09/23/16 [History] Omeprazole 40 mg PO BID 09/23/16 [History] Prednisone [IJD: Prednisone] 20 mg PO DAILY 09/23/16 [History] Pregabalin [Lyrica] 25 mg PO TID 09/23/16 [History] Ranitidine [Zantac] 150 mg PO BID 09/23/16 [History] Roflumilast [Daliresp] 500 mg PO DAILY 09/23/16 [History] Tiotropium [Spiriva HandiHaler] 1 cap INH DAILY 09/23/16 [History] oxyCODONE HCl/Acetaminophen [Percocet 10-325 mg Tablet] 1 tab PO BID PRN [History] - CURRENT (IN HOUSE) MEDS Current Meds: Current Medications Sodium Chloride (Normal Saline) 1,000 mls @ 125 mls/hr IV ASDIRECTED KIM Last Admin: 09/23/16 13:09 Dose: 125 mls/hr Potassium Chloride 10 meq/ (Premix) 100 mls @ 100 mls/hr IV ASDIRECTED KIM Last Admin: 09/23/16 16:04 Dose: 100 mls/hr Sodium Chloride (Normal Saline) 1,000 mls @ 999 mls/hr IV ONETIME ONE Stop: 09/23/16 19:34 Sodium Chloride (Saline Flush) 10 ml FLUSH ONETIME PRN PRN Reason: IV FLUSH Discontinued Medications Diatrizoate Meglum/Diatrizoate Sod (Gastrografin 37%) 90 ml PO ONETIME ONE Stop: 09/23/16 14:23 Last Admin: 09/23/16 14:45 Dose: 90 ml Hydromorphone HCl (Dilaudid) 0.5 mg IVPUSH ONETIME ONE Stop: 09/23/16 13:08 Last Admin: 09/23/16 13:12 Dose: 0.5 mg Hydromorphone HCl (Dilaudid) 0.5 mg IVPUSH ONETIME ONE Stop: 09/23/16 14:08 Last Admin: 09/23/16 14:12 Dose: 0.5 mg Sodium Chloride (Normal Saline) 500 mls @ 500 mls/hr IV .BOLUS ONE Stop: 09/23/16 15:35 Cefoxitin Sodium 2 gm/ Premix 50 mls @ 100 mls/hr IV ONETIME ONE Stop: 09/23/16 16:29 Last Admin: 09/23/16 16:11 Dose: 100 mls/hr Lidocaine HCl (Xylocaine-Mpf 1%) Confirm Administered Dose 2 mls @ as directed .ROUTE .STK-MED ONE Stop: 09/23/16 17:10 Sodium Chloride (Normal Saline) 500 mls @ 999 mls/hr IV ONETIME ONE Stop: 09/23/16 18:10 Last Admin: 09/23/16 17:46 Dose: 999 mls/hr Iopamidol (Isovue-300 (61%)) 100 ml IVPUSH ONETIME ONE Stop: 09/23/16 14:23 Last Admin: 09/23/16 14:46 Dose: 100 ml Ondansetron HCl (Zofran) 4 mg IVPUSH ONETIME ONE Stop: 09/23/16 12:33 Last Admin: 09/23/16 13:10 Dose: 4 mg Pantoprazole Sodium (Protonix Iv) 40 mg IVPUSH ONETIME ONE Stop: 09/23/16 12:36 Last Admin: 09/23/16 13:11 Dose: 40 mg Propofol (Diprivan 20 Ml) Confirm Administered Dose 200 mg .ROUTE .STK-MED ONE Stop: 09/23/16 17:10 Preanesthetic Assessment - ANESTHESIA/TRANSFUSION/FAMILY HX Anesthesia/Transfusion History: Prior Anesthesia, Prior Transfusion Family History of Anesthesia Reaction: No - PHYSICAL ASSESSMENT O2 Sat by Pulse Oximetry: 100 RR: 18 Vital Signs: Last Vital Signs Temp 96.9 F 09/23/16 11:47 Pulse 105 H 09/23/16 18:17 Resp 18 09/23/16 18:17 BP 103/76 09/23/16 18:17 Pulse Ox 100 09/23/16 18:17 Height: 5 ft 1 in Weight: 45.359 kg NPO Status Date: 09/23/16 - LAB Values: Laboratory Last Values WBC 25.79 K/mm3 (3.98-10.04) H 09/23/16 12:47 RBC 4.78 M/mm3 (3.98-5.22) 09/23/16 12:47 Hgb 14.7 gm/L (11.2-15.7) 09/23/16 12:47 Hct 45.3 % (34.1-44.9) H 09/23/16 12:47 MCV 94.8 fl (79.4-94.8) 09/23/16 12:47 MCH 30.8 pg (25.6-32.2) 09/23/16 12:47 MCHC 32.5 g/dl (32.2-35.5) 09/23/16 12:47 RDW Std Deviation 45.8 fL (36.4-46.3) 09/23/16 12:47 Plt Count 410 K/mm3 (182-369) H 09/23/16 12:47 MPV 8.8 fl (9.4-12.3) L 09/23/16 12:47 Neut % (Auto) 88.9 % (34.0-71.1) H 09/23/16 12:47 Lymph % (Auto) 5.9 % (19.3-51.7) L 09/23/16 12:47 Fisher % (Auto) 4.5 % (4.7-12.5) L 09/23/16 12:47 Eos % (Auto) 0.3 (0.7-5.8) L 09/23/16 12:47 Baso % (Auto) 0.1 % (0.1-1.2) 09/23/16 12:47 Neut # (Auto) 22.92 K/mm3 (1.56-6.13) H 09/23/16 12:47 Lymph # (Auto) 1.53 K/mm3 (1.18-3.74) 09/23/16 12:47 Fisher # (Auto) 1.15 K/mm3 (0.24-0.36) H 09/23/16 12:47 Eos # (Auto) 0.08 K/mm3 (0.04-0.36) 09/23/16 12:47 Baso # (Auto) 0.03 K/mm3 (0.01-0.08) 09/23/16 12:47 Manual Slide Review Abnormal smear 09/23/16 12:47 Sodium 138 mEq/L (136-145) 09/23/16 12:47 Potassium 2.9 mEq/L (3.5-5.1) L 09/23/16 12:47 Chloride 96 mEq/L (98-107) L 09/23/16 12:47 Carbon Dioxide 36 mEq/L (21-32) H 09/23/16 12:47 Anion Gap 8.9 (5-15) 09/23/16 12:47 BUN 23 mg/dL (7-18) H 09/23/16 12:47 Creatinine 0.9 mg/dL (0.55-1.02) 09/23/16 12:47 Est Cr Clr Drug Dosing TNP 09/23/16 12:47 Estimated GFR (MDRD) > 60 mL/min (>60) 09/23/16 12:47 BUN/Creatinine Ratio 25.6 (14-18) H 09/23/16 12:47 Glucose 161 mg/dL (83-115) H 09/23/16 12:47 Lactic Acid 2.1 mmol/L (0.4-2.0) H 09/23/16 15:03 Calcium 10.5 mg/dL (8.5-10.1) H 09/23/16 12:47 Total Bilirubin 0.9 mg/dL (0.2-1.0) 09/23/16 12:47 AST 25 U/L (15-37) 09/23/16 12:47 ALT 28 U/L (14-59) 09/23/16 12:47 Alkaline Phosphatase 60 U/L (46-116) 09/23/16 12:47 C-Reactive Protein 1.2 mg/dL (<1.0) H* 09/23/16 12:47 Total Protein 6.5 g/dl (6.4-8.2) 09/23/16 12:47 Albumin 3.3 g/dl (3.4-5.0) L 09/23/16 12:47 Globulin 3.2 gm/dL 09/23/16 12:47 Albumin/Globulin Ratio 1.0 (1-2) 09/23/16 12:47 Lipase 116 U/L (73-393) 09/23/16 12:47 Urine Color Yellow (Yellow) 09/23/16 16:10 Urine Appearance Clear (Clear) 09/23/16 16:10 Urine pH 7.5 (5.0-8.0) 09/23/16 16:10 Ur Specific [place] 1.020 (1.005-1.030) 09/23/16 16:10 Urine Protein Trace (Negative) H 09/23/16 16:10 Urine Glucose (UA) Negative (Negative) 09/23/16 16:10 Urine Ketones Negative (Negative) 09/23/16 16:10 Urine Occult Blood Trace-intact (Negative) H 09/23/16 16:10 Urine Nitrite Negative (Negative) 09/23/16 16:10 Urine Bilirubin Negative (Negative) 09/23/16 16:10 Urine Urobilinogen 0.2 (0.2-1.0) 09/23/16 16:10 Ur Leukocyte Esterase Negative (Negative) 09/23/16 16:10 Urine RBC 0-5 /hpf (0-5) 09/23/16 16:10 Urine WBC 0-5 /hpf (0-5) 09/23/16 16:10 Ur Epithelial Cells Not Reportable 09/23/16 16:10 Ur Squamous Epith Cells 0-5 /hpf (0-5) 09/23/16 16:10 Urine Bacteria Few /hpf (FEW) 09/23/16 16:10 Urine Mucus Few /hpf (FEW) 09/23/16 16:10 - ALLERGIES Allergies/Adverse Reactions: Allergies Allergy/AdvReac Type Severity Reaction Status Date / Time alendronate sodium AdvReac Nausea and Verified 09/23/16 12:10 [From Fosamax] Vomiting codeine AdvReac Nausea and Verified 09/23/16 12:10 Vomiting theophylline AdvReac Nausea and Verified 09/23/16 12:10 Vomiting cats Allergy Wheezing Uncoded 04/07/16 11:48
[2016-09-23] MEDS ORDERED: Lidocaine 1% 30 ML SDV ONE (18:57)
[2016-09-23] MEDS ORDERED: Bupivacaine 0.5% 30 ML SDV ONE (18:57)
[2016-09-23] MEDS ORDERED: ceFAZolin 1 GM Vial ONE (19:08)
[2016-09-23] MEDS ORDERED: Midazolam 1 MG/ML 2 ML SDV ONE (19:08)
[2016-09-23] MEDS ORDERED: Ketamine 500 mg/10 ML MDV ONE (19:09)
[2016-09-23] MEDS ORDERED: methylPREDNISolone Sodium Succinate 125 MG/2 ML SDV ONE (19:28)
[2016-09-23] MEDS ORDERED: Lactated Ringers 1,000 ML ONE (20:08)
[2016-09-23] MEDS ORDERED: HYDROmorphone 0.5 MG/0.5 ML Syringe IVPUSH PRN (21:24)
[2016-09-23] MEDS ORDERED: Ondansetron 4 MG/2 ML SDV IVPUSH PRN (21:26)
--- NOTE | 2016-09-23 21:35 | PCM.OPNOTE ---
- General Post-Op/Procedure Note Date of Surgery/Procedure: 09/23/16 Operative Procedure(s): reductin incarcerated left femoral hernia with bowel resection and repair of hernia Findings: incarcerated hernia and small bowel infarction Pre Op Diagnosis: incarcerated left femoral hernia with infraction of small bowel and small bowel obstruction Post-Op Diagnosis: Same Anesthesia Technique: MAC Primary Surgeon: Govind Sanford EBL in mLs: 10 Complications: None Condition: Good
[2016-09-23] MEDS ORDERED: HYDROmorphone 1 MG/ML Syringe IVPUSH ONE (21:39)
[2016-09-23] MEDS ORDERED: LORazepam 2 MG/ML MDV IVPUSH PRN (21:40)
[2016-09-23] MEDS ORDERED: Lactated Ringers 1,000 ML IV SCH (21:45)
[2016-09-23] MEDS: metroNIDAZOLE/Normal Saline 500 MG in Premix Bag 1 BAG IV SCH (21:46)
--- NOTE | 2016-09-23 21:51 | PCM.CONSN ---
- General Info Date of Service: 09/23/16 Admission Dx/Problem (Free Text): PRE/POST OP: Incarcerated femoral hernia with bowel necrosis S/P Reduction of IC bowel with bowel resection and left femoral hernia repair Subjective Update: 76 year old female presented with abdominal pain, unable to pass flatus with abnormal CT of abdomen went urgently to the ED. Had been seen by general surgeon, Dr Sanford who urgently took the patient to the OR. MAC was utilized for the procedure. Complains of pain everywhere, post op. Functional Status: Reports: urinating - Review of Systems General: Reports: Weakness HEENT: Reports: no symptoms Pulmonary: Reports: no symptoms Cardiovascular: Reports: No Symptoms Gastrointestinal: Reports: Abdominal pain, Constipation, Decreased appetite Genitourinary: Reports: no symptoms Musculoskeletal: Reports: no symptoms Skin: Reports: no symptoms Neurological: Reports: No Symptoms Psychiatric: Reports: no symptoms - Patient Data Vitals - most recent: Last Vital Signs Temp 36.1 C 09/23/16 11:47 Pulse 97 09/23/16 18:48 Resp 18 09/23/16 18:48 BP 107/75 09/23/16 18:48 Pulse Ox 100 09/23/16 18:48 Weight - most recent: 45.359 kg Med Orders - Current: Current Medications Budesonide (Pulmicort) 0.5 mg NEB BIDRT [facility] Hydrocortisone Sodium Succinate (Solu-Cortef) 50 mg IVPUSH Q6H KIM Hydromorphone HCl (Dilaudid) 0.5 mg IVPUSH Q2H PRN PRN Reason: Pain Last Admin: 09/23/16 21:37 Dose: 0.5 mg Sodium Chloride (Normal Saline) 1,000 mls @ 125 mls/hr IV ASDIRECTED [facility] Last Admin: 09/23/16 13:09 Dose: 125 mls/hr Potassium Chloride 10 meq/ (Premix) 100 mls @ 100 mls/hr IV ASDIRECTED [facility] Last Admin: 09/23/16 16:04 Dose: 100 mls/hr Cefoxitin Sodium 1 gm/ Premix 50 mls @ 100 mls/hr IV Q8H KIM Lactated Ringer's (Ringers, Lactated) 1,000 mls @ 75 mls/hr IV ASDIRECTED [facility] Last Admin: 09/23/16 21:46 Dose: 75 mls/hr Metronidazole 500 mg/ Premix 100 mls @ 100 mls/hr IV Q8H KIM Last Admin: 09/23/16 21:46 Dose: 100 mls/hr Non-Formulary Medication (Arformoterol) 1 inh NEB BID KIM Non-Formulary Medication (Fluticasone Propionate [Flovent]) 2 spray INH BID KIM Ondansetron HCl (Zofran) 4 mg IVPUSH Q8H PRN PRN Reason: Nausea Last Admin: 09/23/16 21:37 Dose: 4 mg Sodium Chloride (Saline Flush) 10 ml FLUSH ONETIME PRN PRN Reason: IV FLUSH Discontinued Medications Albuterol (Proventil Neb Soln) 2.5 mg NEB ONETIME ONE Stop: 09/23/16 18:38 Last Admin: 09/23/16 18:42 Dose: 2.5 mg Albuterol (Proventil Neb Soln) Confirm Administered Dose 2.5 mg .ROUTE .STK-MED ONE Stop: 09/23/16 18:42 Last Admin: 09/23/16 21:31 Dose: Not Given Bupivacaine HCl (Marcaine 0.5%) Confirm Administered Dose 30 ml .ROUTE .STK-MED ONE Stop: 09/23/16 18:58 Cefazolin Sodium (Ancef) Confirm Administered Dose 2 gm .ROUTE .STK-MED ONE Stop: 09/23/16 19:09 Diatrizoate Meglum/Diatrizoate Sod (Gastrografin 37%) 90 ml PO ONETIME ONE Stop: 09/23/16 14:23 Last Admin: 09/23/16 14:45 Dose: 90 ml Hydromorphone HCl (Dilaudid) 0.5 mg IVPUSH ONETIME ONE Stop: 09/23/16 13:08 Last Admin: 09/23/16 13:12 Dose: 0.5 mg Hydromorphone HCl (Dilaudid) 0.5 mg IVPUSH ONETIME ONE Stop: 09/23/16 14:08 Last Admin: 09/23/16 14:12 Dose: 0.5 mg Sodium Chloride (Normal Saline) 500 mls @ 500 mls/hr IV .BOLUS ONE Stop: 09/23/16 15:35 Last Admin: 09/23/16 21:30 Dose: Not Given Cefoxitin Sodium 2 gm/ Premix 50 mls @ 100 mls/hr IV ONETIME ONE Stop: 09/23/16 16:29 Last Admin: 09/23/16 16:11 Dose: 100 mls/hr Lidocaine HCl (Xylocaine-Mpf 1%) Confirm Administered Dose 2 mls @ as directed .ROUTE .STK-MED ONE Stop: 09/23/16 17:10 Sodium Chloride (Normal Saline) 500 mls @ 999 mls/hr IV ONETIME ONE Stop: 09/23/16 18:10 Last Admin: 09/23/16 17:46 Dose: 999 mls/hr Sodium Chloride (Normal Saline) 1,000 mls @ 999 mls/hr IV ONETIME ONE Stop: 09/23/16 19:34 Last Admin: 09/23/16 21:31 Dose: Not Given Lactated Ringer's (Ringers, Lactated) Confirm Administered Dose 1,000 mls @ as directed .ROUTE .STK-MED ONE Stop: 09/23/16 20:09 Iopamidol (Isovue-300 (61%)) 100 ml IVPUSH ONETIME ONE Stop: 09/23/16 14:23 Last Admin: 09/23/16 14:46 Dose: 100 ml Ketamine HCl (Ketalar) Confirm Administered Dose 500 mg .ROUTE .STK-MED ONE Stop: 09/23/16 19:10 Lidocaine HCl (Xylocaine-Mpf 1%) Confirm Administered Dose 30 ml .ROUTE .STK- MED ONE Stop: 09/23/16 18:58 Methylprednisolone Sodium Succinate (Solu-Medrol) Confirm Administered Dose 125 mg .ROUTE .STK-MED ONE Stop: 09/23/16 19:29 Midazolam HCl (Versed 1 Mg/Ml) Confirm Administered Dose 2 mg .ROUTE .STK-MED ONE Stop: 09/23/16 19:09 Ondansetron HCl (Zofran) 4 mg IVPUSH ONETIME ONE Stop: 09/23/16 12:33 Last Admin: 09/23/16 13:10 Dose: 4 mg Pantoprazole Sodium (Protonix Iv) 40 mg IVPUSH ONETIME ONE Stop: 09/23/16 12:36 Last Admin: 09/23/16 13:11 Dose: 40 mg Propofol (Diprivan 20 Ml) Confirm Administered Dose 200 mg .ROUTE .STK-MED ONE Stop: 09/23/16 17:10 - Exam Quality Assessment: supplemental oxygen, urine catheter, DVT prophylaxis General: alert, oriented, mild distress, other (NGT) HEENT: Pupils equal, Pupils reactive, EOMI Neck: supple, trachea midline Lungs: Normal respiratory effort, Decreased breath sounds Cardiovascular: Regular Rate Abdomen: soft, tenderness, distension (minimal), abnormal bowel sounds (Female) Exam: Deferred Back Exam: Normal Inspection Extremities: no edema Skin: cool, other (hairless) Wound/Incisions: dressing dry and intact Neurological: no new focal deficit, normal speech Psy/Mental Status: alert, normal affect, normal mood Consult PN Assessment/Plan POD#: 0 Procedures: Procedures 3D RENDER W/INTRP POSTPROCES (04/27/15) AIRWAY INHALATION TREATMENT (08/21/15) ASSAY OF LACTIC ACID (08/21/15) ASSAY OF MAGNESIUM (08/21/15) ASSAY OF TROPONIN QUANT (08/21/15) BLOOD CULTURE FOR BACTERIA (08/21/15) BLOOD GASES ANY COMBINATION (04/30/15) BONE IMAGING WHOLE BODY (11/17/13) C-REACTIVE PROTEIN (08/21/15) CHEST WALL MANIPULATION (08/21/15) CHEST WALL MANIPULATION (08/21/15) CHEST WALL MANIPULATION (08/09/15) CHEST WALL MANIPULATION (08/09/15) CHEST X-RAY 1 VIEW FRONTAL (08/21/15) CHEST X-RAY 2VW FRONTAL&LATL (03/29/16) COMPLETE CBC W/AUTO DIFF WBC (03/29/16) COMPREHEN METABOLIC PANEL (03/29/16) CONTRAST X-RAY EXAM OF COLON (03/31/15) CT ANGIOGRAPHY CHEST (04/30/15) CT HEAD/BRAIN W/O DYE (08/09/15) CT LUMBAR SPINE W/O DYE (04/27/15) CT PELVIS W/O DYE (04/27/15) CULTURE OTHR SPECIMN AEROBIC (08/09/15) DXA BONE DENSITY AXIAL (10/28/13) ELECTROCARDIOGRAM TRACING (08/21/15) EMERGENCY DEPT VISIT (04/07/16) EMERGENCY DEPT VISIT (03/29/16) EMERGENCY DEPT VISIT (08/21/15) EMERGENCY DEPT VISIT (09/27/13) EVALUATE PT USE OF INHALER (08/21/15) GAIT TRAINING THERAPY (08/21/15) HYDRATE IV INFUSION ADD-ON (04/30/15) HYDRATION IV INFUSION INIT (08/09/15) INJ TRIGGER POINT 1/2 MUSCL (04/07/16) MEASURE BLOOD OXYGEN LEVEL (08/21/15) MEASURE BLOOD OXYGEN LEVEL (08/21/15) METABOLIC PANEL TOTAL CA (08/21/15) OT EVALUATION (08/21/15) PROTHROMBIN TIME (08/09/15) PT EVALUATION (08/21/15) PULMONARY STRESS TEST/SIMPLE (11/15/14) RBC SED RATE AUTOMATED (08/21/15) ROUTINE VENIPUNCTURE (03/29/16) SELF CARE MNGMENT TRAINING (08/21/15) SMEAR GRAM STAIN (08/09/15) THER/PROPH/DIAG INJ IV PUSH (04/11/15) THER/PROPH/DIAG INJ SC/IM (04/07/16) THER/PROPH/DIAG IV INF ADDON (04/30/15) THER/PROPH/DIAG IV INF INIT (08/21/15) THERAPEUTIC ACTIVITIES (08/21/15) THERAPEUTIC EXERCISES (08/21/15) THROMBOPLASTIN TIME PARTIAL (08/09/15) TX/PRO/DX INJ NEW DRUG ADDON (08/21/15) TX/PROPH/DG ADDL SEQ IV INF (08/21/15) URINALYSIS AUTO W/SCOPE (08/21/15) URINE CULTURE/COLONY COUNT (04/11/15) WITHDRAWAL OF ARTERIAL BLOOD (04/30/15) X-RAY EXAM OF FEMUR 2/> (08/09/15) X-RAY EXAM OF PELVIS (03/29/16) X-RAY EXAM OF SHOULDER (04/11/15) (1) Abdominal pain in female SNOMED Code(s): 63693492 Code(s): R10.9 - UNSPECIFIED ABDOMINAL PAIN (2) Hypokalemia SNOMED Code(s): 61793484 Code(s): E87.6 - HYPOKALEMIA (3) Nausea & vomiting SNOMED Code(s): 57089815 Code(s): R11.2 - NAUSEA WITH VOMITING, UNSPECIFIED Qualifiers: Vomiting type: bilious vomiting Qualified Code(s): R11.14 - Bilious vomiting (4) Small bowel strangulation SNOMED Code(s): 32036938 Code(s): K56.2 - VOLVULUS (5) COPD (chronic obstructive pulmonary disease) SNOMED Code(s): 68592901 Code(s): J44.9 - CHRONIC OBSTRUCTIVE PULMONARY DISEASE, UNSPECIFIED Qualifiers: COPD type: COPD with acute lower respiratory infection Qualified Code(s): J44.0 - Chronic obstructive pulmonary disease with acute lower respiratory infection Problem List Initiated/Reviewed/Updated: Yes My Orders last 24 hours: My Active Orders 09/23/16 21:39 HYDROmorphone [Dilaudid] 1 mg IVPUSH ONETIME ONE 09/23/16 21:40 LORazepam [Ativan] 0.5 mg IVPUSH Q8H PRN 09/23/16 21:45 Antiembolic Devices [RC] PER UNIT ROUTINE RT Aerosol Therapy [RC] ASDIRECTED SCD [Sequential Compression Device] [OM.PC] Routine 09/23/16 22:00 Pantoprazole [ProTONIX IV] 40 mg IVPUSH Q12H methylPREDNISolone Sod Succ [Solu-MEDROL] 40 mg IVPUSH Q8H 09/24/16 05:00 CRP [C-REACTIVE PROTEIN] [CHEM] DAILY LACTIC ACID [CHEM] DAILY MAGNESIUM [CHEM] DAILY 09/24/16 09:00 Levalbuterol HCl [Xopenex] 1.25 mg NEB QID 09/25/16 05:00 CRP [C-REACTIVE PROTEIN] [CHEM] DAILY LACTIC ACID [CHEM] DAILY MAGNESIUM [CHEM] DAILY Plan: Impression: Pre/Post Op: Incarcerated femoral hernia with bowel necrosis S/P Reduction of incarcerated bowel with bowel resection and left femoral hernia repair Antonella-procedural period, presented with abdominal pain Abnormal physical exam and CT of abdomen, SBO Chronic COPD, severe HTN History of lung CA GERD Urinary Incontinence Plan: O2, maintain O2 Sat>92% Nebs QID as well as prn IVF Protonix ATBs, continue post op antibiotics, adjust as needed. Pressors as needed Murphy cath care Labs Q shift, correct electrolytes DVT prophylaxis
[2016-09-23] MEDS ORDERED: Ketorolac 30 MG/ML SDV IVPUSH ONE (21:58)
[2016-09-23] MEDS ORDERED: Hydrocortisone Sodium Succinate 100 MG/2 ML SDV IVPUSH SCH (22:00)
--- NOTE | 2016-09-23 22:05 | PCM.POSTAN ---
POST ANESTHESIA ASSESSMENT - MENTAL STATUS Mental Status: alert, oriented - VITAL SIGNS Pulse Rate: 118 SaO2: 97 Resp Rate: 30 Blood Pressure: 77/58 Temperature: 98.7 F - RESPIRATORY Respiratory Status: airway patent, O2 saturation stable, supplemental oxygen, elevated respiratory rate - CARDIOVASCULAR CV Status: elevated pulse rate, low blood pressure - GASTROINTESTINAL GI Status: no symptoms - PAIN Pain Score: 5 (She states she hurts all over) - POST OP HYDRATION Hydration Status: adequate & stable
[2016-09-23] MEDS ORDERED: Furosemide 20 MG/2 ML VIAL IVPUSH ONE ×2 (22:08→22:45)
[2016-09-23] MEDS ORDERED: Albumin 25% 50 ML ONE (22:18)
[2016-09-23] MEDS ORDERED: Furosemide 40 MG/4 ML VIAL IVPUSH ONE (22:45)
[2016-09-23] MEDS: methylPREDNISolone Sodium Succinate 40 MG/1 ML SDV IVPUSH SCH (23:07)
[2016-09-23] MEDS: cefOXitin 1 GM in Premix Bag 1 BAG IV SCH (23:08)
[2016-09-23] MEDS: Pantoprazole 40 MG Vial IVPUSH SCH (23:16)
[2016-09-23] MEDS: Sodium Chloride 0.9% 1,000 ML IV ONE (23:21)
[2016-09-23] MEDS: HYDROmorphone 1 MG/ML Syringe IVPUSH PRN (23:25)
[2016-09-24] MEDS: Sodium Chloride 0.9% 1,000 ML IV ONE (00:36)
[2016-09-24] MEDS: Norepinephrine 4 MG in Dextrose 5% in Water 246 ML IV SCH ×6 (00:49→13:49)
[2016-09-24] MEDS: HYDROmorphone 1 MG/ML Syringe IVPUSH PRN ×2 (02:55→13:28)
[2016-09-24] MEDS: Ketorolac 30 MG/ML SDV IVPUSH SCH ×3 (04:24→15:21)
[2016-09-24] MEDS ORDERED: Budesonide 0.5 MG/2 ML Neb Susp NEB SCH (06:00)
[2016-09-24] MEDS: methylPREDNISolone Sodium Succinate 40 MG/1 ML SDV IVPUSH SCH (06:00)
[2016-09-24] MEDS: metroNIDAZOLE/Normal Saline 500 MG in Premix Bag 1 BAG IV SCH ×2 (06:00→15:08)
[2016-09-24] MEDS ORDERED: Albumin 25% 50 ML ONE (06:27)
[2016-09-24] MEDS: Levalbuterol HCl 1.25 MG/3 ML Neb NEB SCH ×3 (06:41→16:07)
[2016-09-24] MEDS ORDERED: NS + KCl 20mEq/L 1,000 ML IV SCH (07:00)
[2016-09-24] MEDS ORDERED: Flu Vaccine 2016-17(36Mos+)/PF 60 MCG/0.5 ML Syringe IM ONE (07:44)
--- NOTE | 2016-09-24 07:58 | HP ---
DATE OF ADMISSION: 09/23/2016 HISTORY OF PRESENT ILLNESS: A 76-year-old female, who has generalized abdominal pain, nausea, vomiting, and severe constipation. She has been sick since Friday. Had not had any bowel movements. It was felt to be due to her laxatives. She has lung cancer and COPD. Came into the emergency room where known bilateral inguinal hernias were noted; the left one on CT scan was incarcerated and the right one was protruding. PAST MEDICAL HISTORY: Hypertension, severe COPD, malignant neoplasia of the bronchus, chronic constipation due to pain medication, bladder prolapse, and fracture of the pelvis. CURRENT MEDICATIONS: Per medication reconciliation form were noted. PAST SURGICAL HISTORY: Cataract surgery, hysterectomy, oophorectomy, and bladder mesh. SOCIAL HISTORY: She is hearing impaired. She is a chronic smoker. The patient has quit. No recreational drugs. FAMILY HISTORY: Father of [place]. Mother had reported renal disease. REVIEW OF SYSTEMS: Nausea, vomiting, and abdominal pain. PHYSICAL EXAMINATION: GENERAL: Reveals an alert and cooperative female. EYES: Unremarkable. NECK: Supple. LUNGS: Distant breath sounds. Increased AP diameter and chronic obstructive lung disease. ABDOMEN: She has a distended abdomen and a distended gut in the right inguinal region, but it is the left side that is obstructed. EXTREMITIES: Upper and lower extremities, no angulation deformities. NEUROLOGIC: Alert and oriented. PSYCHIATRIC: Normal. SKIN: Warm and dry. PHYSICAL EXAMINATION: VITAL SIGNS: Pulse 110, respirations 16, blood pressure 93/77, after giving pain medications and receiving fluid. LABORATORY DATA: White count 25,000, hemoglobin 14, and platelet count is 410. Creatinine is 0.9 with BUN 23, potassium 2.9, sodium 138, CO2 of 36, BUN of 23, and calcium is high at 10.5. ASSESSMENT: Obstructed femoral hernia on the left and obvious hernia on the right, probably not obstructive. PLAN: Go to surgery for urgent repair. Discussed the risks and complications, understands and consents. MMLIYAH /[id number]
[2016-09-24] MEDS ORDERED: Furosemide 20 MG/2 ML VIAL IVPUSH ONE (08:00)
--- NOTE | 2016-09-24 08:02 | CR ---
Chest: Frontal view of the chest was obtained. Comparison: Previous chest x-ray of 03/29/16. Heart size shows a slight left ventricular configuration. Tortuous thoracic aorta is seen. Central lung markings are seen which appear stable from prior exam. Lungs otherwise are clear. Left-sided infusion port is seen. Bony structures are osteopenic. Scoliosis is present within the spine. Impression: 1. Incidental findings. No significant change from prior chest x-ray. Diagnostic code #2 I agree with preliminary report issued by [facility] (preliminary report dictated on 09/24/16, 1:21 AM Central Time)
--- NOTE | 2016-09-24 08:05 | OR ---
DATE OF OPERATION: 09/23/2016 SURGEON: Govind Sanford MD PREOPERATIVE DIAGNOSIS: Incarcerated femoral hernia with bowel necrosis. POSTOPERATIVE DIAGNOSIS: Incarcerated femoral hernia with bowel necrosis. OPERATION PERFORMED: Reduction of incarcerated bowel and left femoral hernia with bowel resection and repair of femoral hernia. ANESTHESIA: Procedure done under IV sedation, 1% Xylocaine. FINDINGS: Small knuckle of bowel entrapped in the femoral hernia with the antimesenteric border necrosed. DESCRIPTION OF PROCEDURE: The patient was taken to the operating room, placed in a supine position, connected monitoring equipment. Antibiotics had been given in the emergency room and a Murphy catheter was inserted. The abdomen and left inguinal region was clipped and prepped with Betadine, draped off in a sterile fashion. IV sedation was given and 1% Xylocaine was infiltrated in the left inguinal region and an incision was made over the lump in the femoral region. This was carried down by sharp dissection through the subcuticular tissue. A transverse incision was made. This was carried down to the surface of the femoral hernia and the hernia sac was dissected out. It was then opened up and it contained bowel. In order to release the bowel, the reflection of the inguinal ligament was incised. This allowed the bowel to be brought out for inspection showing necrosis in the antimesenteric border. The bowel was then clamped on either end of this where it was viable and between Angelica, and the mesentery was taken down between curved hemostat. The bowel and the mesentery were then incised along with the bowel delivered for specimen. The cut ends of the mesenteric artery were then sutured together with interrupted 3-0 Vicryl suture. Hand-sewn anastomosis was then performed, placed in the posterior roll of interrupted 3-0 silk sutures. The bowel clamps were placed in the bowel and the surgical area was toweled off with protective towels and the clamps were then cut after the silk sutures were tied. Posterior roll anastomosis was then completed with a running 3-0 chromic suture. It was brought around anteriorly and tied to itself. The bowel clamps were then removed and the anterior row was completed with interrupted 3-0 silk Lembert sutures. Good anastomosis was noted with good lumen and excellent blood flow. The bowel was then irrigated and reduced. The peritoneum of the hernia sac was then closed with running 3-0 Vicryl suture. The repair was then accomplished by bringing the shelving edge of the inguinal ligament to Karsten's ligament by placing interrupted 2-0 Ethibond sutures. Once they were all placed taking care to avoid any injury to the vein, the Ethibond sutures were then tied and cut. Transition suture was made and the subcuticular tissue was closed with interrupted 3-0 Vicryl suture and the skin was closed with subdermal 4-0 Dexon suture. Steri-Strips and sterile dressing placed. The patient tolerated the procedure and sent to recovery room in a stable condition as one could expect. ESTIMATED BLOOD LOSS: 10 mL MMODAL /[id number]
--- NOTE | 2016-09-24 08:55 | PCM48HPAN ---
Post Anesthesia Note - EVALUATION WITHIN 48HRS OF ANESTHETIC Vital Signs in Normal Range: No (Pt is still critically ill, but seems stable at the moment.) Patient Participated in Evaluation: Yes (Pt not very communicative, but able to say she isn't in pain when at rest.) Respiratory Function Stable: Yes (stable, but requiring O2 (this is pt's baseline) Sats 88%-93%) Airway Patent: Yes Cardiovascular Function Stable: Yes (stable, but BP lower than desirable and requiring pressors. tachycardic) Hydration Status Stable: Yes Pain Control Satisfactory: Yes (Pt comfortable except when turned) Nausea and Vomiting Control Satisfactory: Yes Mental Status Recovered: No (Pt is quite tired and communication is difficult.) - COMMENTS/OBSERVATIONS Free Text/Narrative:: Given the patient's current co-morbidities (lung-cancer in the setting of Severe COPD) and her acute problems (bowel resection necessitated by strangulated/dying bowel)
--- NOTE | 2016-09-24 08:56 | CR ---
Chest: Portable view of the chest was obtained. Comparison: Previous chest x-ray of 09/23/16. Heart size is stable. Tortuous thoracic aorta is seen. Slight linear densities within both lung bases compatible with scarring is seen. Lungs otherwise are clear. Central pulmonary vessels are mildly increased which appear stable. Nasogastric tube is seen with tip lying within the stomach. Left-sided infusion port is seen. Scoliosis present within the spine. Bony structures are osteopenic. Impression: 1. Nasogastric tube with tip lying within the stomach. 2. Other portions of the chest are stable from prior exam. Diagnostic code #2
[2016-09-24] MEDS ORDERED: Furosemide 40 MG/4 ML VIAL IVPUSH ONE (09:00)
[2016-09-24] MEDS ORDERED: Sodium Chloride 0.9% 500 ML IV ONE (09:00)
[2016-09-24] MEDS ORDERED: ARFORMOTEROL NEB SCH (09:00)
[2016-09-24] MEDS ORDERED: Sodium Chloride 0.9% 10 ML Syringe FLUSH PRN (09:08)
[2016-09-24] MEDS ORDERED: Lidocaine 1% 2 ML ONE (09:30)
[2016-09-24] MEDS ORDERED: Lidocaine 1% 50 ML MDV ONE (10:12)
[2016-09-24] MEDS ORDERED: Midazolam 1 MG/ML 2 ML SDV ONE (10:18)
[2016-09-24] MEDS ORDERED: Midazolam 1 MG/ML 2 ML SDV IVPUSH SCH (10:19)
[2016-09-24] MEDS ORDERED: Lidocaine 1% 50 ML MDV INJECT ONE (10:23)
[2016-09-24] MEDS ORDERED: LORazepam 2 MG/ML MDV IVPUSH PRN (10:26)
[2016-09-24] MEDS ORDERED: Piperacillin/Tazobactam 4.5 GM in Sodium Chloride 0.9% 100 ML IV ONE (10:30)
--- NOTE | 2016-09-24 10:52 | PCM.CONSN ---
- General Info Date of Service: 09/24/16 Admission Dx/Problem (Free Text): Discussed critical condition of patient, may require mechanical ventilation; will try BIPAP trial, if needed. Discussed code status as well during multiple family meetings. Patient's family present, son and daughter in law. Staff included: author; Roberta FLEMING and RNKrzysztof. Resp status, SBO with sepsis, as well as ARF were discussed. Code status was discussed on several occasions as well, son and daughter in law voiced understanding with all questions answered. Functional Status: Reports: pain controlled, other (sedated) - Review of Systems General: Reports: No Symptoms HEENT: Reports: no symptoms Pulmonary: Reports: no symptoms Cardiovascular: Reports: No Symptoms Gastrointestinal: Reports: Abdominal pain Genitourinary: Reports: no symptoms Musculoskeletal: Reports: no symptoms Skin: Reports: no symptoms Neurological: Reports: No Symptoms Psychiatric: Reports: no symptoms - Patient Data Vitals - most recent: Last Vital Signs Temp 37.2 C 09/24/16 08:00 Pulse 123 H 09/24/16 09:00 Resp 23 H 09/24/16 09:00 BP 60/45 L 09/24/16 09:00 Pulse Ox 92 L 09/24/16 09:00 Weight - most recent: 43.176 kg I&O - last 24 hours: Intake & Output 09/23/16 09/24/16 09/24/16 22:59 06:59 14:59 Intake Total 1200 4870 200 Output Total 945 760 65 Balance 255 4110 135 Lab Results last 24 hrs: Laboratory Results - last 24 hr 09/23/16 09/23/16 09/23/16 Range/Units 22:30 22:30 22:30 WBC 6.83 (3.98-10.04) K/mm3 RBC 4.67 (3.98-5.22) M/mm3 Hgb 14.3 (11.2-15.7) gm/L Hct 44.9 (34.1-44.9) % MCV 96.1 H (79.4-94.8) fl MCH 30.6 (25.6-32.2) pg MCHC 31.8 L (32.2-35.5) g/dl RDW Std Deviation 47.3 H (36.4-46.3) fL Plt Count 426 H (182-369) K/mm3 MPV 9.4 (9.4-12.3) fl Neut % (Auto) 88.5 H (34.0-71.1) % Lymph % (Auto) 3.7 L (19.3-51.7) % Tyrrell % (Auto) 7.2 (4.7-12.5) % Eos % (Auto) 0.4 L (0.7-5.8) Baso % (Auto) 0.1 (0.1-1.2) % Neut # (Auto) 6.04 (1.56-6.13) K/mm3 Lymph # (Auto) 0.25 L (1.18-3.74) K/mm3 Tyrrell # (Auto) 0.49 H (0.24-0.36) K/mm3 Eos # (Auto) 0.03 L (0.04-0.36) K/mm3 Baso # (Auto) 0.01 (0.01-0.08) K/mm3 Manual Slide Review Abnormal smear Sodium 142 (136-145) mEq/L Potassium 3.2 L (3.5-5.1) mEq/L Chloride 103 (98-107) mEq/L Carbon Dioxide 25 (21-32) mEq/L Anion Gap 17.2 H (5-15) BUN 32 H (7-18) mg/dL Creatinine 1.4 H (0.55-1.02) mg/dL Est Cr Clr Drug Dosing TNP Estimated GFR (MDRD) 36 (>60) mL/min BUN/Creatinine Ratio 22.9 H (14-18) Glucose 154 H (83-115) mg/dL Lactic Acid 7.0 H (0.4-2.0) mmol/L Calcium 8.3 L (8.5-10.1) mg/dL Magnesium 2.0 (1.8-2.4) mg/dl Total Bilirubin 0.5 (0.2-1.0) mg/dL AST 31 (15-37) U/L ALT 22 (14-59) U/L Alkaline Phosphatase 49 (46-116) U/L C-Reactive Protein (<1.0) mg/dL Total Protein 4.8 L (6.4-8.2) g/dl Albumin 2.3 L (3.4-5.0) g/dl Globulin 2.5 gm/dL Albumin/Globulin Ratio 0.9 L (1-2) 09/24/16 09/24/16 09/24/16 Range/Units 06:55 06:55 06:55 WBC 7.82 (3.98-10.04) K/mm3 RBC 3.83 L (3.98-5.22) M/mm3 Hgb 12.0 (11.2-15.7) gm/L Hct 37.1 (34.1-44.9) % MCV 96.9 H (79.4-94.8) fl MCH 31.3 (25.6-32.2) pg MCHC 32.3 (32.2-35.5) g/dl RDW Std Deviation 47.3 H (36.4-46.3) fL Plt Count 359 (182-369) K/mm3 MPV 9.4 (9.4-12.3) fl Neut % (Auto) (34.0-71.1) % Lymph % (Auto) (19.3-51.7) % Tyrrell % (Auto) (4.7-12.5) % Eos % (Auto) (0.7-5.8) Baso % (Auto) (0.1-1.2) % Neut # (Auto) (1.56-6.13) K/mm3 Lymph # (Auto) (1.18-3.74) K/mm3 Tyrrell # (Auto) (0.24-0.36) K/mm3 Eos # (Auto) (0.04-0.36) K/mm3 Baso # (Auto) (0.01-0.08) K/mm3 Manual Slide Review Sodium 142 (136-145) mEq/L Potassium 3.2 L (3.5-5.1) mEq/L Chloride 103 (98-107) mEq/L Carbon Dioxide 25 (21-32) mEq/L Anion Gap 17.2 H (5-15) BUN 45 H (7-18) mg/dL Creatinine 1.9 H (0.55-1.02) mg/dL Est Cr Clr Drug Dosing 16.90 Estimated GFR (MDRD) 26 (>60) mL/min BUN/Creatinine Ratio 23.7 H (14-18) Glucose 108 (83-115) mg/dL Lactic Acid (0.4-2.0) mmol/L Calcium 7.4 L (8.5-10.1) mg/dL Magnesium 1.9 (1.8-2.4) mg/dl Total Bilirubin 0.7 (0.2-1.0) mg/dL AST 44 H (15-37) U/L ALT 20 (14-59) U/L Alkaline Phosphatase 65 (46-116) U/L C-Reactive Protein 10.9 H* (<1.0) mg/dL Total Protein 4.9 L (6.4-8.2) g/dl Albumin 3.0 L (3.4-5.0) g/dl Globulin 1.9 gm/dL Albumin/Globulin Ratio 1.6 (1-2) 09/24/16 Range/Units 06:55 WBC (3.98-10.04) K/mm3 RBC (3.98-5.22) M/mm3 Hgb (11.2-15.7) gm/L Hct (34.1-44.9) % MCV (79.4-94.8) fl MCH (25.6-32.2) pg MCHC (32.2-35.5) g/dl RDW Std Deviation (36.4-46.3) fL Plt Count (182-369) K/mm3 MPV (9.4-12.3) fl Neut % (Auto) (34.0-71.1) % Lymph % (Auto) (19.3-51.7) % Tyrrell % (Auto) (4.7-12.5) % Eos % (Auto) (0.7-5.8) Baso % (Auto) (0.1-1.2) % Neut # (Auto) (1.56-6.13) K/mm3 Lymph # (Auto) (1.18-3.74) K/mm3 Tyrrell # (Auto) (0.24-0.36) K/mm3 Eos # (Auto) (0.04-0.36) K/mm3 Baso # (Auto) (0.01-0.08) K/mm3 Manual Slide Review Sodium (136-145) mEq/L Potassium (3.5-5.1) mEq/L Chloride (98-107) mEq/L Carbon Dioxide (21-32) mEq/L Anion Gap (5-15) BUN (7-18) mg/dL Creatinine (0.55-1.02) mg/dL Est Cr Clr Drug Dosing Estimated GFR (MDRD) (>60) mL/min BUN/Creatinine Ratio (14-18) Glucose (83-115) mg/dL Lactic Acid 5.7 H (0.4-2.0) mmol/L Calcium (8.5-10.1) mg/dL Magnesium (1.8-2.4) mg/dl Total Bilirubin (0.2-1.0) mg/dL AST (15-37) U/L ALT (14-59) U/L Alkaline Phosphatase (46-116) U/L C-Reactive Protein (<1.0) mg/dL Total Protein (6.4-8.2) g/dl Albumin (3.4-5.0) g/dl Globulin gm/dL Albumin/Globulin Ratio (1-2) Med Orders - Current: Current Medications Budesonide (Pulmicort) 0.5 mg NEB BIDRT KIM Last Admin: 09/24/16 06:16 Dose: 0.5 mg Flunisolide (Nasalide Nasal [place]) 0 ml NASBOTH BID KIM Hydromorphone HCl (Dilaudid) 1 mg IVPUSH Q2H PRN PRN Reason: Pain (moderate 4-6) Last Admin: 09/24/16 02:55 Dose: 1 mg Metronidazole 500 mg/ Premix 100 mls @ 100 mls/hr IV Q8H KIM Last Admin: 09/24/16 06:00 Dose: 100 mls/hr Norepinephrine Bitartrate 4 mg (/ Dextrose/Water) 250 mls @ 7.5 mls/hr IV TITRATE KIM; 2 MCG/MIN PRN Reason: Protocol Last Titration: 09/24/16 10:48 Dose: 19 mcg/min, 71.25 mls/hr Potassium Chloride/Sodium Chloride (Normal Saline With 20 Meq Kcl) 1,000 mls @ 100 mls/hr IV ASDIRECTED KIM Last Admin: 09/24/16 08:56 Dose: 100 mls/hr Piperacillin Sod/Tazobactam (Sod 4.5 gm/ Sodium Chloride) 100 mls @ 200 mls/hr IV ONETIME ONE Stop: 09/24/16 10:59 Last Admin: 09/24/16 10:50 Dose: 200 mls/hr Piperacillin Sod/Tazobactam (Sod 4.5 gm/ Sodium Chloride) 100 mls @ 25 mls/hr IV Q12H [facility] Ketorolac Tromethamine (Toradol) 30 mg IVPUSH Q6H [facility] Stop: 09/25/16 10:01 Last Admin: 09/24/16 09:25 Dose: 30 mg Levalbuterol HCl (Xopenex) 1.25 mg NEB QIDRT [facility] Last Admin: 09/24/16 06:41 Dose: 1.25 mg Lorazepam (Ativan) 0.5 mg IVPUSH Q8H PRN PRN Reason: Anxiety Last Admin: 09/24/16 06:09 Dose: 0.5 mg Lorazepam (Ativan) 1 mg IVPUSH Q6H PRN PRN Reason: restlessness Methylprednisolone Sodium Succinate (Solu-Medrol) 40 mg IVPUSH Q8H [facility] Last Admin: 09/24/16 06:00 Dose: 40 mg Midazolam HCl (Versed 1 Mg/Ml) 1 mg IVPUSH ONETIME [facility] Last Admin: 09/24/16 10:41 Dose: 1 mg Ondansetron HCl (Zofran) 4 mg IVPUSH Q8H PRN PRN Reason: Nausea Last Admin: 09/23/16 21:37 Dose: 4 mg Pantoprazole Sodium (Protonix Iv) 40 mg IVPUSH Q12H [facility] Last Admin: 09/23/16 23:16 Dose: 40 mg Arformoterol 1 Inh 0 each NEB BID [facility] Sodium Chloride (Saline Flush) 10 ml FLUSH ONETIME PRN PRN Reason: IV FLUSH Discontinued Medications Albuterol (Proventil Neb Soln) 2.5 mg NEB ONETIME ONE Stop: 09/23/16 18:38 Last Admin: 09/23/16 18:42 Dose: 2.5 mg Albuterol (Proventil Neb Soln) Confirm Administered Dose 2.5 mg .ROUTE .STK-MED ONE Stop: 09/23/16 18:42 Last Admin: 09/23/16 21:31 Dose: Not Given Bupivacaine HCl (Marcaine 0.5%) Confirm Administered Dose 30 ml .ROUTE .STK-MED ONE Stop: 09/23/16 18:58 Last Admin: 09/23/16 19:41 Dose: 8.5 ml Cefazolin Sodium (Ancef) Confirm Administered Dose 2 gm .ROUTE .STK-MED ONE Stop: 09/23/16 19:09 Diatrizoate Meglum/Diatrizoate Sod (Gastrografin 37%) 90 ml PO ONETIME ONE Stop: 09/23/16 14:23 Last Admin: 09/23/16 14:45 Dose: 90 ml Furosemide (Lasix) 10 mg IVPUSH NOW ONE Stop: 09/23/16 22:09 Last Admin: 09/24/16 07:30 Dose: Not Given Furosemide (Lasix) 10 mg IVPUSH NOW ONE Stop: 09/24/16 09:01 Furosemide (Lasix) 10 mg IVPUSH NOW ONE Stop: 09/23/16 22:46 Last Admin: 09/24/16 00:33 Dose: Not Given Furosemide (Lasix) 20 mg IVPUSH ONETIME ONE Stop: 09/24/16 08:01 Hydrocortisone Sodium Succinate (Solu-Cortef) 50 mg IVPUSH Q6H [facility] Last Admin: 09/24/16 07:30 Dose: Not Given Hydromorphone HCl (Dilaudid) 0.5 mg IVPUSH ONETIME ONE Stop: 09/23/16 13:08 Last Admin: 09/23/16 13:12 Dose: 0.5 mg Hydromorphone HCl (Dilaudid) 0.5 mg IVPUSH ONETIME ONE Stop: 09/23/16 14:08 Last Admin: 09/23/16 14:12 Dose: 0.5 mg Hydromorphone HCl (Dilaudid) 0.5 mg IVPUSH Q2H PRN PRN Reason: Pain Last Admin: 09/23/16 21:37 Dose: 0.5 mg Hydromorphone HCl (Dilaudid) 1 mg IVPUSH ONETIME ONE Stop: 09/23/16 21:40 Last Admin: 09/23/16 22:35 Dose: Not Given Sodium Chloride (Normal Saline) 1,000 mls @ 125 mls/hr IV ASDIRECTED KIM Last Admin: 09/23/16 13:09 Dose: 125 mls/hr Sodium Chloride (Normal Saline) 500 mls @ 500 mls/hr IV .BOLUS ONE Stop: 09/23/16 15:35 Last Admin: 09/23/16 21:30 Dose: Not Given Potassium Chloride 10 meq/ (Premix) 100 mls @ 100 mls/hr IV ASDIRECTED [facility] Last Infusion: 09/23/16 21:46 Dose: Infused Cefoxitin Sodium 2 gm/ Premix 50 mls @ 100 mls/hr IV ONETIME ONE Stop: 09/23/16 16:29 Last Admin: 09/23/16 16:11 Dose: 100 mls/hr Lidocaine HCl (Xylocaine-Mpf 1%) Confirm Administered Dose 2 mls @ as directed .ROUTE .STK-MED ONE Stop: 09/23/16 17:10 Sodium Chloride (Normal Saline) 500 mls @ 999 mls/hr IV ONETIME ONE Stop: 09/23/16 18:10 Last Admin: 09/23/16 17:46 Dose: 999 mls/hr Sodium Chloride (Normal Saline) 1,000 mls @ 999 mls/hr IV ONETIME ONE Stop: 09/23/16 19:34 Last Admin: 09/23/16 21:31 Dose: Not Given Lactated Ringer's (Ringers, Lactated) Confirm Administered Dose 1,000 mls @ as directed .ROUTE .STK-MED ONE Stop: 09/23/16 20:09 Cefoxitin Sodium 1 gm/ Premix 50 mls @ 100 mls/hr IV Q8H [facility] Last Infusion: 09/23/16 23:21 Dose: Infused Lactated Ringer's (Ringers, Lactated) 1,000 mls @ 75 mls/hr IV ASDIRECTED [facility] Last Admin: 09/23/16 21:46 Dose: 75 mls/hr Albumin Human (Flexbumin 25%) 25 gm in 100 mls @ 100 mls/hr IV ONETIME ONE Stop: 09/24/16 02:59 Albumin Human (Flexbumin 25%) 25 gm in 100 mls @ 100 mls/hr IV ONETIME ONE Stop: 09/23/16 23:14 Last Infusion: 09/23/16 23:08 Dose: Infused Albumin Human (Flexbumin 25%) Confirm Administered Dose 50 mls @ as directed .ROUTE .STK-MED ONE Stop: 09/23/16 22:19 Last Admin: 09/23/16 22:36 Dose: Not Given Sodium Chloride (Normal Saline) 1,000 mls @ 999 mls/hr IV ONETIME ONE Stop: 09/24/16 02:00 Last Admin: 09/24/16 00:36 Dose: Not Given Albumin Human (Flexbumin 25%) 25 gm in 100 mls @ 100 mls/hr IV ONETIME ONE Stop: 09/24/16 01:36 Last Infusion: 09/24/16 01:30 Dose: Infused Albumin Human (Flexbumin 25%) 25 gm in 100 mls @ 100 mls/hr IV ONETIME ONE Stop: 09/24/16 07:23 Last Admin: 09/24/16 06:31 Dose: 100 mls/hr Albumin Human (Flexbumin 25%) Confirm Administered Dose 50 mls @ as directed .ROUTE .STK-MED ONE Stop: 09/24/16 06:28 Sodium Chloride (Normal Saline) 500 mls @ 999 mls/hr IV .BOLUS ONE Stop: 09/24/16 09:30 Last Admin: 09/24/16 09:00 Dose: 999 mls/hr Lidocaine HCl (Xylocaine-Mpf 1%) Confirm Administered Dose 2 mls @ as directed .ROUTE .STK-MED ONE Stop: 09/24/16 09:31 Influenza Virus Vaccine (Fluzone/Fluarix Vaccine) 60 mcg IM .ONCE ONE Stop: 09/24/16 07:45 Iopamidol (Isovue-300 (61%)) 100 ml IVPUSH ONETIME ONE Stop: 09/23/16 14:23 Last Admin: 09/23/16 14:46 Dose: 100 ml Ketamine HCl (Ketalar) Confirm Administered Dose 500 mg .ROUTE .STK-MED ONE Stop: 09/23/16 19:10 Ketorolac Tromethamine (Toradol) 60 mg IVPUSH ONETIME ONE Stop: 09/23/16 21:59 Last Admin: 09/23/16 22:14 Dose: 60 mg Ketorolac Tromethamine (Toradol) 30 mg IVPUSH Q6H [facility] Stop: 09/26/16 10:01 Lidocaine HCl (Xylocaine-Mpf 1%) Confirm Administered Dose 30 ml .ROUTE .STK- MED ONE Stop: 09/23/16 18:58 Last Admin: 09/23/16 19:41 Dose: 8.5 ml Lidocaine HCl (Xylocaine 1%) Confirm Administered Dose 50 ml .ROUTE .STK-MED ONE Stop: 09/24/16 10:13 Lidocaine HCl (Xylocaine 1%) 50 ml INJECT ONETIME ONE Stop: 09/24/16 10:24 Last Admin: 09/24/16 10:41 Dose: 50 ml Methylprednisolone Sodium Succinate (Solu-Medrol) Confirm Administered Dose 125 mg .ROUTE .STK-MED ONE Stop: 09/23/16 19:29 Midazolam HCl (Versed 1 Mg/Ml) Confirm Administered Dose 2 mg .ROUTE .STK-MED ONE Stop: 09/23/16 19:09 Midazolam HCl (Versed 1 Mg/Ml) Confirm Administered Dose 2 mg .ROUTE .STK-MED ONE Stop: 09/24/16 10:19 Ondansetron HCl (Zofran) 4 mg IVPUSH ONETIME ONE Stop: 09/23/16 12:33 Last Admin: 09/23/16 13:10 Dose: 4 mg Pantoprazole Sodium (Protonix Iv) 40 mg IVPUSH ONETIME ONE Stop: 09/23/16 12:36 Last Admin: 09/23/16 13:11 Dose: 40 mg Propofol (Diprivan 20 Ml) Confirm Administered Dose 200 mg .ROUTE .STK-MED ONE Stop: 09/23/16 17:10 Sodium Chloride (Saline Flush) 10 ml FLUSH ONETIME PRN PRN Reason: IV FLUSH - Exam Quality Assessment: supplemental oxygen, central line/PICC, urine catheter, DVT prophylaxis General: mild distress, sedated HEENT: Pupils equal, Pupils reactive Neck: supple, trachea midline Lungs: Normal respiratory effort, Decreased breath sounds Cardiovascular: Regular Rate, Tachycardia Abdomen: soft, tenderness, distension (Female) Exam: Deferred Back Exam: Normal Inspection Extremities: edema (minimal) Skin: cool Wound/Incisions: dressing dry and intact Neurological: no new focal deficit, other (sedated) Consult PN Assessment/Plan POD#: 1 Procedures: Procedures 3D RENDER W/INTRP POSTPROCES (04/27/15) AIRWAY INHALATION TREATMENT (08/21/15) ASSAY OF LACTIC ACID (08/21/15) ASSAY OF MAGNESIUM (08/21/15) ASSAY OF TROPONIN QUANT (08/21/15) BLOOD CULTURE FOR BACTERIA (08/21/15) BLOOD GASES ANY COMBINATION (04/30/15) BONE IMAGING WHOLE BODY (11/17/13) C-REACTIVE PROTEIN (08/21/15) CHEST WALL MANIPULATION (08/21/15) CHEST WALL MANIPULATION (08/21/15) CHEST WALL MANIPULATION (08/09/15) CHEST WALL MANIPULATION (08/09/15) CHEST X-RAY 1 VIEW FRONTAL (08/21/15) CHEST X-RAY 2VW FRONTAL&LATL (03/29/16) COMPLETE CBC W/AUTO DIFF WBC (03/29/16) COMPREHEN METABOLIC PANEL (03/29/16) CONTRAST X-RAY EXAM OF COLON (03/31/15) CT ANGIOGRAPHY CHEST (04/30/15) CT HEAD/BRAIN W/O DYE (08/09/15) CT LUMBAR SPINE W/O DYE (04/27/15) CT PELVIS W/O DYE (04/27/15) CULTURE OTHR SPECIMN AEROBIC (08/09/15) DXA BONE DENSITY AXIAL (10/28/13) ELECTROCARDIOGRAM TRACING (08/21/15) EMERGENCY DEPT VISIT (04/07/16) EMERGENCY DEPT VISIT (03/29/16) EMERGENCY DEPT VISIT (08/21/15) EMERGENCY DEPT VISIT (09/27/13) EVALUATE PT USE OF INHALER (08/21/15) GAIT TRAINING THERAPY (08/21/15) HYDRATE IV INFUSION ADD-ON (04/30/15) HYDRATION IV INFUSION INIT (08/09/15) INJ TRIGGER POINT 1/2 MUSCL (04/07/16) MEASURE BLOOD OXYGEN LEVEL (08/21/15) MEASURE BLOOD OXYGEN LEVEL (08/21/15) METABOLIC PANEL TOTAL CA (08/21/15) OT EVALUATION (08/21/15) PROTHROMBIN TIME (08/09/15) PT EVALUATION (08/21/15) PULMONARY STRESS TEST/SIMPLE (11/15/14) RBC SED RATE AUTOMATED (08/21/15) ROUTINE VENIPUNCTURE (03/29/16) SELF CARE MNGMENT TRAINING (08/21/15) SMEAR GRAM STAIN (08/09/15) THER/PROPH/DIAG INJ IV PUSH (04/11/15) THER/PROPH/DIAG INJ SC/IM (04/07/16) THER/PROPH/DIAG IV INF ADDON (04/30/15) THER/PROPH/DIAG IV INF INIT (08/21/15) THERAPEUTIC ACTIVITIES (08/21/15) THERAPEUTIC EXERCISES (08/21/15) THROMBOPLASTIN TIME PARTIAL (08/09/15) TX/PRO/DX INJ NEW DRUG ADDON (08/21/15) TX/PROPH/DG ADDL SEQ IV INF (08/21/15) URINALYSIS AUTO W/SCOPE (08/21/15) URINE CULTURE/COLONY COUNT (04/11/15) WITHDRAWAL OF ARTERIAL BLOOD (04/30/15) X-RAY EXAM OF FEMUR 2/> (08/09/15) X-RAY EXAM OF PELVIS (03/29/16) X-RAY EXAM OF SHOULDER (04/11/15) Problem List Initiated/Reviewed/Updated: Yes My Orders last 24 hours: My Active Orders 09/23/16 21:40 LORazepam [Ativan] 0.5 mg IVPUSH Q8H PRN 09/23/16 21:45 Antiembolic Devices [RC] 10,22 RT Aerosol Therapy [RC] ASDIRECTED SCD [Sequential Compression Device] [OM.PC] Routine 09/23/16 21:56 HYDROmorphone [Dilaudid] 1 mg IVPUSH Q2H PRN 09/23/16 22:00 Pantoprazole [ProTONIX IV] 40 mg IVPUSH Q12H methylPREDNISolone Sod Succ [Solu-MEDROL] 40 mg IVPUSH Q8H 09/23/16 22:30 Norepinephrine [Levophed] 4 mg Dextrose 5% in Water 246 ml IV TITRATE 09/24/16 04:00 Ketorolac [Toradol] 30 mg IVPUSH Q6H 09/24/16 06:30 Levalbuterol HCl [Xopenex] 1.25 mg NEB QIDRT 09/24/16 07:00 NS + KCl 20mEq/L [Normal Saline with 20 mEq KCl] 1,000 ml IV ASDIRECTED 09/24/16 09:08 Sodium Chloride 0.9% [Saline Flush] 10 ml FLUSH ONETIME PRN 09/24/16 10:26 LORazepam [Ativan] 1 mg IVPUSH Q6H PRN 09/24/16 10:30 Piperacillin/Tazobactam [Zosyn] 4.5 gm Sodium Chloride 0.9% [Normal Saline] 100 ml IV ONETIME 09/24/16 10:44 ABG [BLOOD GAS ARTERIAL] [BG] Urgent 09/24/16 10:46 BIPAP [RT BiPAP/CPAP] [RC] ASDIRECTED 09/24/16 22:30 Piperacillin/Tazobactam [Zosyn] 4.5 gm Sodium Chloride 0.9% [Normal Saline] 100 ml IV Q12H 09/25/16 05:00 CRP [C-REACTIVE PROTEIN] [CHEM] DAILY LACTIC ACID [CHEM] DAILY MAGNESIUM [CHEM] DAILY Plan: Impression/Plan: POD1, s/p SBO, incarcerated with bowel necrosis Septic shock ARF Steroid Dependent COPD Resp Failure failed noninvasive ventilation Switched to Mech Ventilation Use of multiple pressers Aggressive fluid resuscitation Additional ATBS for broad spectrum coverage Pronounced at 1911 hour, please see dicatted DC summary by Dr Sanford..
[2016-09-24] MEDS: cefOXitin 1 GM in Premix Bag 1 BAG IV SCH (10:54)
[2016-09-24] MEDS: Pantoprazole 40 MG Vial IVPUSH SCH (11:08)
[2016-09-24] MEDS ORDERED: Albumin 25% 12.5 GM/50 ML BAG IV ONE ×2 (11:39→13:30)
--- NOTE | 2016-09-24 11:39 | PCM.SN ---
- Free Text/Narrative Note: Anesthesiology Procedure Note - Ultrasound guided Arterial Line Placement for critical care patient requiring pressors. Requested by Dr Mccarthy After chart review and PARQ with son, consent obtained. U/S used to locate Right Radial artery. non-pulsatile on U/S, but thready pulse felt. Right radial artery followed cephalad to Right Brachial Artery which was pulsatile on U/S to confirm proper Artery. Sterile prep/drape of Right volar wrist, sterile gloves as well as hat mask. sterile U/S sound sleave. Local Anesthetic skin and tissue infiltration under U/S guidance with 2 cc 1% lidocaine. U/S guided attempt at Arterial cannulization failed after 1 attempt. pressure dressing applied Change to Left Radial artery. U/S used to locate Left Radial Artery which was pulsatile on U/S. Sterile prep/Drape of Left volar wrist, sterile gloves as well as had/mask. sterile U/S sleave. 1 mg Midazolam IV given to calm restless pt. Local Anesthetic skin and tissue infiltration under U/S guidance with 2 cc 1% lidocaine. U/S guided attempt at Arterial cannulization successful with one attempt. Cannula threaded easily, needle and guidewire removed, good pulsatile tracing seen. A-line secured with tegaderm and mastasol and sterile occlusive dressing. Pt VSS at end of procedure. no complications.
[2016-09-24] MEDS ORDERED: Sodium Bicarbonate 150 MEQ in Dextrose 5% in Water 1,000 ML IV ONE ×2 (12:14)
[2016-09-24] MEDS ORDERED: Sodium Chloride 0.9% 1,000 ML IV SCH (12:30)
[2016-09-24] MEDS: methylPREDNISolone Sodium Succinate 125 MG/2 ML SDV IVPUSH SCH ×2 (12:40→19:30)
[2016-09-24] MEDS ORDERED: ALBUMIN IV ONE (12:52)
[2016-09-24] MEDS: Norepinephrine 8 MG in Dextrose 5% in Water 242 ML IV SCH ×4 (13:00→17:06)
[2016-09-24] MEDS: Albumin 25% 12.5 GM/50 ML BAG IV SCH ×2 (13:09→13:45)
[2016-09-24] MEDS ORDERED: Sodium Bicarbonate 8.4% 50 MEQ/50 ML Syringe ONE (14:16)
[2016-09-24] MEDS ORDERED: Sodium Bicarbonate 8.4% 50 MEQ/50 ML Syringe IVPUSH ONE (14:33)
[2016-09-24] MEDS ORDERED: Phenylephrine 10 MG in Sodium Chloride 0.9% 99 ML IV SCH (14:45)
[2016-09-24] MEDS ORDERED: Norepinephrine 8 MG in Dextrose 5% in Water 250 ML IV SCH ×2 (14:50)
[2016-09-24] MEDS ORDERED: Norepinephrine 8 MG in Dextrose 5% in Water 242 ML IV SCH ×4 (14:50→16:15)
[2016-09-24] MEDS ORDERED: Succinylcholine 200 MG/10 ML MDV IV STA ×2 (15:55→16:11)
[2016-09-24] MEDS ORDERED: Etomidate 2 MG/ML 20 ML SDV IVPUSH ONE (15:55)
--- NOTE | 2016-09-24 15:57 | PCM.SURGPN ---
- General Info Date of Service: 09/24/16 POD#: 1 Functional Status: Reports: pain controlled - Review of Systems General: Reports: Other (VS support by ephederine) Pulmonary: Reports: other (on support with saturations at 90%) Skin: Reports: cyanosis (legs), other - Patient Data Vitals - most recent: Last Vital Signs Temp 99.7 F 09/24/16 13:00 Pulse 113 H 09/24/16 14:00 Resp 20 09/24/16 14:00 BP 81/64 L 09/24/16 14:00 Pulse Ox 84 L 09/24/16 14:00 Weight - most recent: 43.176 kg I&O - last 24 hours: Intake & Output 09/23/16 09/24/16 09/24/16 23:59 07:59 15:59 Intake Total 1200 5070 Output Total 1095 610 203 Balance 105 4460 -203 Lab Results last 24 hrs: Laboratory Results - last 24 hr 09/23/16 09/23/16 09/23/16 Range/Units 22:30 22:30 22:30 WBC 6.83 (3.98-10.04) K/mm3 RBC 4.67 (3.98-5.22) M/mm3 Hgb 14.3 (11.2-15.7) gm/L Hct 44.9 (34.1-44.9) % MCV 96.1 H (79.4-94.8) fl MCH 30.6 (25.6-32.2) pg MCHC 31.8 L (32.2-35.5) g/dl RDW Std Deviation 47.3 H (36.4-46.3) fL Plt Count 426 H (182-369) K/mm3 MPV 9.4 (9.4-12.3) fl Neut % (Auto) 88.5 H (34.0-71.1) % Lymph % (Auto) 3.7 L (19.3-51.7) % [place] % (Auto) 7.2 (4.7-12.5) % Eos % (Auto) 0.4 L (0.7-5.8) Baso % (Auto) 0.1 (0.1-1.2) % Neut # (Auto) 6.04 (1.56-6.13) K/mm3 Lymph # (Auto) 0.25 L (1.18-3.74) K/mm3 [place] # (Auto) 0.49 H (0.24-0.36) K/mm3 Eos # (Auto) 0.03 L (0.04-0.36) K/mm3 Baso # (Auto) 0.01 (0.01-0.08) K/mm3 Manual Slide Review Abnormal smear Puncture Site ABG pH (7.35-7.45) ABG pCO2 (35.0-45.0) mmHg ABG pO2 (80.0-100.0) mmHg ABG HCO3 (22.0-26.0) meq/L ABG O2 Saturation (96.0-97.0) % ABG Base Excess (-2-2.0) A-a Gradient mmHg O2 Delivery Device FiO2 (21.00-100.00) % Sodium 142 (136-145) mEq/L Potassium 3.2 L (3.5-5.1) mEq/L Chloride 103 (98-107) mEq/L Carbon Dioxide 25 (21-32) mEq/L Anion Gap 17.2 H (5-15) BUN 32 H (7-18) mg/dL Creatinine 1.4 H (0.55-1.02) mg/dL Est Cr Clr Drug Dosing TNP Estimated GFR (MDRD) 36 (>60) mL/min BUN/Creatinine Ratio 22.9 H (14-18) Glucose 154 H (83-115) mg/dL Lactic Acid 7.0 H (0.4-2.0) mmol/L Calcium 8.3 L (8.5-10.1) mg/dL Magnesium 2.0 (1.8-2.4) mg/dl Total Bilirubin 0.5 (0.2-1.0) mg/dL AST 31 (15-37) U/L ALT 22 (14-59) U/L Alkaline Phosphatase 49 (46-116) U/L C-Reactive Protein (<1.0) mg/dL Total Protein 4.8 L (6.4-8.2) g/dl Albumin 2.3 L (3.4-5.0) g/dl Globulin 2.5 gm/dL Albumin/Globulin Ratio 0.9 L (1-2) 09/24/16 09/24/16 09/24/16 Range/Units 06:55 06:55 06:55 WBC 7.82 (3.98-10.04) K/mm3 RBC 3.83 L (3.98-5.22) M/mm3 Hgb 12.0 (11.2-15.7) gm/L Hct 37.1 (34.1-44.9) % MCV 96.9 H (79.4-94.8) fl MCH 31.3 (25.6-32.2) pg MCHC 32.3 (32.2-35.5) g/dl RDW Std Deviation 47.3 H (36.4-46.3) fL Plt Count 359 (182-369) K/mm3 MPV 9.4 (9.4-12.3) fl Neut % (Auto) (34.0-71.1) % Lymph % (Auto) (19.3-51.7) % [place] % (Auto) (4.7-12.5) % Eos % (Auto) (0.7-5.8) Baso % (Auto) (0.1-1.2) % Neut # (Auto) (1.56-6.13) K/mm3 Lymph # (Auto) (1.18-3.74) K/mm3 [place] # (Auto) (0.24-0.36) K/mm3 Eos # (Auto) (0.04-0.36) K/mm3 Baso # (Auto) (0.01-0.08) K/mm3 Manual Slide Review Puncture Site ABG pH (7.35-7.45) ABG pCO2 (35.0-45.0) mmHg ABG pO2 (80.0-100.0) mmHg ABG HCO3 (22.0-26.0) meq/L ABG O2 Saturation (96.0-97.0) % ABG Base Excess (-2-2.0) A-a Gradient mmHg O2 Delivery Device FiO2 (21.00-100.00) % Sodium 142 (136-145) mEq/L Potassium 3.2 L (3.5-5.1) mEq/L Chloride 103 (98-107) mEq/L Carbon Dioxide 25 (21-32) mEq/L Anion Gap 17.2 H (5-15) BUN 45 H (7-18) mg/dL Creatinine 1.9 H (0.55-1.02) mg/dL Est Cr Clr Drug Dosing 16.90 Estimated GFR (MDRD) 26 (>60) mL/min BUN/Creatinine Ratio 23.7 H (14-18) Glucose 108 (83-115) mg/dL Lactic Acid (0.4-2.0) mmol/L Calcium 7.4 L (8.5-10.1) mg/dL Magnesium 1.9 (1.8-2.4) mg/dl Total Bilirubin 0.7 (0.2-1.0) mg/dL AST 44 H (15-37) U/L ALT 20 (14-59) U/L Alkaline Phosphatase 65 (46-116) U/L C-Reactive Protein 10.9 H* (<1.0) mg/dL Total Protein 4.9 L (6.4-8.2) g/dl Albumin 3.0 L (3.4-5.0) g/dl Globulin 1.9 gm/dL Albumin/Globulin Ratio 1.6 (1-2) 09/24/16 09/24/16 09/24/16 Range/Units 06:55 10:44 12:05 WBC (3.98-10.04) K/mm3 RBC (3.98-5.22) M/mm3 Hgb (11.2-15.7) gm/L Hct (34.1-44.9) % MCV (79.4-94.8) fl MCH (25.6-32.2) pg MCHC (32.2-35.5) g/dl RDW Std Deviation (36.4-46.3) fL Plt Count (182-369) K/mm3 MPV (9.4-12.3) fl Neut % (Auto) (34.0-71.1) % Lymph % (Auto) (19.3-51.7) % [place] % (Auto) (4.7-12.5) % Eos % (Auto) (0.7-5.8) Baso % (Auto) (0.1-1.2) % Neut # (Auto) (1.56-6.13) K/mm3 Lymph # (Auto) (1.18-3.74) K/mm3 [place] # (Auto) (0.24-0.36) K/mm3 Eos # (Auto) (0.04-0.36) K/mm3 Baso # (Auto) (0.01-0.08) K/mm3 Manual Slide Review Puncture Site left radial art line ABG pH 7.26 L (7.35-7.45) ABG pCO2 44.5 (35.0-45.0) mmHg ABG pO2 65.0 L (80.0-100.0) mmHg ABG HCO3 19.1 L (22.0-26.0) meq/L ABG O2 Saturation 89.8 L (96.0-97.0) % ABG Base Excess -7.3 L (-2-2.0) A-a Gradient 149 mmHg O2 Delivery Device Bipap 12/6 FiO2 40.00 (21.00-100.00) % Sodium (136-145) mEq/L Potassium (3.5-5.1) mEq/L Chloride (98-107) mEq/L Carbon Dioxide (21-32) mEq/L Anion Gap (5-15) BUN (7-18) mg/dL Creatinine (0.55-1.02) mg/dL Est Cr Clr Drug Dosing Estimated GFR (MDRD) (>60) mL/min BUN/Creatinine Ratio (14-18) Glucose (83-115) mg/dL Lactic Acid 5.7 H 4.0 H (0.4-2.0) mmol/L Calcium (8.5-10.1) mg/dL Magnesium (1.8-2.4) mg/dl Total Bilirubin (0.2-1.0) mg/dL AST (15-37) U/L ALT (14-59) U/L Alkaline Phosphatase (46-116) U/L C-Reactive Protein (<1.0) mg/dL Total Protein (6.4-8.2) g/dl Albumin (3.4-5.0) g/dl Globulin gm/dL Albumin/Globulin Ratio (1-2) 09/24/16 09/24/16 09/24/16 Range/Units 14:00 14:00 14:00 WBC (3.98-10.04) K/mm3 RBC (3.98-5.22) M/mm3 Hgb 12.8 (11.2-15.7) gm/L Hct (34.1-44.9) % MCV (79.4-94.8) fl MCH (25.6-32.2) pg MCHC (32.2-35.5) g/dl RDW Std Deviation (36.4-46.3) fL Plt Count (182-369) K/mm3 MPV (9.4-12.3) fl Neut % (Auto) (34.0-71.1) % Lymph % (Auto) (19.3-51.7) % [place] % (Auto) (4.7-12.5) % Eos % (Auto) (0.7-5.8) Baso % (Auto) (0.1-1.2) % Neut # (Auto) (1.56-6.13) K/mm3 Lymph # (Auto) (1.18-3.74) K/mm3 [place] # (Auto) (0.24-0.36) K/mm3 Eos # (Auto) (0.04-0.36) K/mm3 Baso # (Auto) (0.01-0.08) K/mm3 Manual Slide Review Puncture Site Left radial art line ABG pH 7.19 L* (7.35-7.45) ABG pCO2 51.3 H (35.0-45.0) mmHg ABG pO2 54.0 L (80.0-100.0) mmHg ABG HCO3 18.9 L (22.0-26.0) meq/L ABG O2 Saturation 81.3 L (96.0-97.0) % ABG Base Excess -9.1 L (-2-2.0) A-a Gradient 151 mmHg O2 Delivery Device Bipap 12 6 FiO2 40.00 (21.00-100.00) % Sodium 139 (136-145) mEq/L Potassium 3.9 (3.5-5.1) mEq/L Chloride 104 (98-107) mEq/L Carbon Dioxide 20 L (21-32) mEq/L Anion Gap 18.9 H (5-15) BUN 47 H (7-18) mg/dL Creatinine 2.2 H (0.55-1.02) mg/dL Est Cr Clr Drug Dosing 14.60 Estimated GFR (MDRD) 22 (>60) mL/min BUN/Creatinine Ratio 21.4 H (14-18) Glucose 162 H (83-115) mg/dL Lactic Acid (0.4-2.0) mmol/L Calcium 6.5 L (8.5-10.1) mg/dL Magnesium (1.8-2.4) mg/dl Total Bilirubin (0.2-1.0) mg/dL AST (15-37) U/L ALT (14-59) U/L Alkaline Phosphatase (46-116) U/L C-Reactive Protein (<1.0) mg/dL Total Protein (6.4-8.2) g/dl Albumin (3.4-5.0) g/dl Globulin gm/dL Albumin/Globulin Ratio (1-2) Med Orders - Current: Current Medications Budesonide (Pulmicort) 0.5 mg NEB BIDRT [facility] Last Admin: 09/24/16 06:16 Dose: 0.5 mg Flunisolide (Nasalide Nasal [place]) 0 ml NASBOTH BID [facility] Last Admin: 09/24/16 10:50 Dose: Not Given Hydromorphone HCl (Dilaudid) 1 mg IVPUSH Q2H PRN PRN Reason: Pain (moderate 4-6) Last Admin: 09/24/16 13:28 Dose: 1 mg Metronidazole 500 mg/ Premix 100 mls @ 100 mls/hr IV Q8H [facility] Last Admin: 09/24/16 15:08 Dose: 100 mls/hr Potassium Chloride/Sodium Chloride (Normal Saline With 20 Meq Kcl) 1,000 mls @ 100 mls/hr IV ASDIRECTED [facility] Last Admin: 09/24/16 08:56 Dose: 100 mls/hr Piperacillin Sod/Tazobactam (Sod 4.5 gm/ Sodium Chloride) 100 mls @ 25 mls/hr IV Q12H [facility] Sodium Chloride (Normal Saline) 1,000 mls @ 999 mls/hr IV ASDIRECTED [facility] Last Admin: 09/24/16 12:13 Dose: 999 mls/hr Sodium Bicarbonate 150 meq/ (Dextrose/Water) 1,150 mls @ 75 mls/hr IV ONETIME ONE Stop: 09/25/16 03:33 Last Admin: 09/24/16 12:37 Dose: 75 mls/hr Phenylephrine HCl 10 mg/ (Sodium Chloride) 100 mls @ 36 mls/hr IV TITRATE [facility]IM; 60 MCG/MIN PRN Reason: Protocol Last Admin: 09/24/16 15:06 Dose: 60 mcg/min, 36 mls/hr Norepinephrine Bitartrate 8 mg (/ Dextrose/Water) 250 mls @ 58.14 mls/hr IV TITRATE KIM PRN Reason: Protocol Phenylephrine HCl 50 mg/ (Sodium Chloride) 100 mls @ 7.2 mls/hr IV TITRATE KIM ; 60 MCG/MIN PRN Reason: Protocol Ketorolac Tromethamine (Toradol) 30 mg IVPUSH Q6H [facility] Stop: 09/25/16 10:01 Last Admin: 09/24/16 15:21 Dose: 30 mg Levalbuterol HCl (Xopenex) 1.25 mg NEB QIDRT [facility] Last Admin: 09/24/16 11:13 Dose: 1.25 mg Lorazepam (Ativan) 0.5 mg IVPUSH Q8H PRN PRN Reason: Anxiety Last Admin: 09/24/16 06:09 Dose: 0.5 mg Lorazepam (Ativan) 1 mg IVPUSH Q6H PRN PRN Reason: restlessness Last Admin: 09/24/16 11:04 Dose: 1 mg Methylprednisolone Sodium Succinate (Solu-Medrol) 125 mg IVPUSH Q6H [facility] Last Admin: 09/24/16 12:40 Dose: 125 mg Midazolam HCl (Versed 1 Mg/Ml) 1 mg IVPUSH ONETIME [facility] Last Admin: 09/24/16 10:41 Dose: 1 mg Ondansetron HCl (Zofran) 4 mg IVPUSH Q8H PRN PRN Reason: Nausea Last Admin: 09/23/16 21:37 Dose: 4 mg Pantoprazole Sodium (Protonix Iv) 40 mg IVPUSH Q12H [facility] Last Admin: 09/24/16 11:08 Dose: 40 mg Arformoterol 1 Inh 0 each NEB BID [facility] Last Admin: 09/24/16 10:51 Dose: Not Given Sodium Chloride (Saline Flush) 10 ml FLUSH ONETIME PRN PRN Reason: IV FLUSH Discontinued Medications Albuterol (Proventil Neb Soln) 2.5 mg NEB ONETIME ONE Stop: 09/23/16 18:38 Last Admin: 09/23/16 18:42 Dose: 2.5 mg Albuterol (Proventil Neb Soln) Confirm Administered Dose 2.5 mg .ROUTE .STK-MED ONE Stop: 09/23/16 18:42 Last Admin: 09/23/16 21:31 Dose: Not Given Bupivacaine HCl (Marcaine 0.5%) Confirm Administered Dose 30 ml .ROUTE .STK-MED ONE Stop: 09/23/16 18:58 Last Admin: 09/23/16 19:41 Dose: 8.5 ml Cefazolin Sodium (Ancef) Confirm Administered Dose 2 gm .ROUTE .STK-MED ONE Stop: 09/23/16 19:09 Diatrizoate Meglum/Diatrizoate Sod (Gastrografin 37%) 90 ml PO ONETIME ONE Stop: 09/23/16 14:23 Last Admin: 09/23/16 14:45 Dose: 90 ml Furosemide (Lasix) 10 mg IVPUSH NOW ONE Stop: 09/23/16 22:09 Last Admin: 09/24/16 07:30 Dose: Not Given Furosemide (Lasix) 10 mg IVPUSH NOW ONE Stop: 09/24/16 09:01 Furosemide (Lasix) 10 mg IVPUSH NOW ONE Stop: 09/23/16 22:46 Last Admin: 09/24/16 00:33 Dose: Not Given Furosemide (Lasix) 20 mg IVPUSH ONETIME ONE Stop: 09/24/16 08:01 Last Admin: 09/24/16 10:50 Dose: Not Given Hydrocortisone Sodium Succinate (Solu-Cortef) 50 mg IVPUSH Q6H [facility] Last Admin: 09/24/16 07:30 Dose: Not Given Hydromorphone HCl (Dilaudid) 0.5 mg IVPUSH ONETIME ONE Stop: 09/23/16 13:08 Last Admin: 09/23/16 13:12 Dose: 0.5 mg Hydromorphone HCl (Dilaudid) 0.5 mg IVPUSH ONETIME ONE Stop: 09/23/16 14:08 Last Admin: 09/23/16 14:12 Dose: 0.5 mg Hydromorphone HCl (Dilaudid) 0.5 mg IVPUSH Q2H PRN PRN Reason: Pain Last Admin: 09/23/16 21:37 Dose: 0.5 mg Hydromorphone HCl (Dilaudid) 1 mg IVPUSH ONETIME ONE Stop: 09/23/16 21:40 Last Admin: 09/23/16 22:35 Dose: Not Given Sodium Chloride (Normal Saline) 1,000 mls @ 125 mls/hr IV ASDIRECTED [facility] Last Admin: 09/23/16 13:09 Dose: 125 mls/hr Sodium Chloride (Normal Saline) 500 mls @ 500 mls/hr IV .BOLUS ONE Stop: 09/23/16 15:35 Last Admin: 09/23/16 21:30 Dose: Not Given Potassium Chloride 10 meq/ (Premix) 100 mls @ 100 mls/hr IV ASDIRECTED [facility] Last Infusion: 09/23/16 21:46 Dose: Infused Cefoxitin Sodium 2 gm/ Premix 50 mls @ 100 mls/hr IV ONETIME ONE Stop: 09/23/16 16:29 Last Admin: 09/23/16 16:11 Dose: 100 mls/hr Lidocaine HCl (Xylocaine-Mpf 1%) Confirm Administered Dose 2 mls @ as directed .ROUTE .STK-MED ONE Stop: 09/23/16 17:10 Sodium Chloride (Normal Saline) 500 mls @ 999 mls/hr IV ONETIME ONE Stop: 09/23/16 18:10 Last Admin: 09/23/16 17:46 Dose: 999 mls/hr Sodium Chloride (Normal Saline) 1,000 mls @ 999 mls/hr IV ONETIME ONE Stop: 09/23/16 19:34 Last Admin: 09/23/16 21:31 Dose: Not Given Lactated Ringer's (Ringers, Lactated) Confirm Administered Dose 1,000 mls @ as directed .ROUTE .STK-MED ONE Stop: 09/23/16 20:09 Cefoxitin Sodium 1 gm/ Premix 50 mls @ 100 mls/hr IV Q8H [facility] Last Admin: 09/24/16 10:54 Dose: Not Given Lactated Ringer's (Ringers, Lactated) 1,000 mls @ 75 mls/hr IV ASDIRECTED [facility] Last Admin: 09/23/16 21:46 Dose: 75 mls/hr Albumin Human (Flexbumin 25%) 25 gm in 100 mls @ 100 mls/hr IV ONETIME ONE Stop: 09/24/16 02:59 Albumin Human (Flexbumin 25%) 25 gm in 100 mls @ 100 mls/hr IV ONETIME ONE Stop: 09/23/16 23:14 Last Infusion: 09/23/16 23:08 Dose: Infused Albumin Human (Flexbumin 25%) Confirm Administered Dose 50 mls @ as directed .ROUTE .STK-MED ONE Stop: 09/23/16 22:19 Last Admin: 09/23/16 22:36 Dose: Not Given Norepinephrine Bitartrate 4 mg (/ Dextrose/Water) 250 mls @ 7.5 mls/hr IV TITRATE KIM; 2 MCG/MIN PRN Reason: Protocol Last Titration: 09/24/16 13:50 Dose: 32 mcg/min, 120 mls/hr Sodium Chloride (Normal Saline) 1,000 mls @ 999 mls/hr IV ONETIME ONE Stop: 09/24/16 02:00 Last Admin: 09/24/16 00:36 Dose: Not Given Albumin Human (Flexbumin 25%) 25 gm in 100 mls @ 100 mls/hr IV ONETIME ONE Stop: 09/24/16 01:36 Last Infusion: 09/24/16 01:30 Dose: Infused Albumin Human (Flexbumin 25%) 25 gm in 100 mls @ 100 mls/hr IV ONETIME ONE Stop: 09/24/16 07:23 Last Admin: 09/24/16 06:31 Dose: 100 mls/hr Albumin Human (Flexbumin 25%) Confirm Administered Dose 50 mls @ as directed .ROUTE .STK-MED ONE Stop: 09/24/16 06:28 Last Admin: 09/24/16 10:50 Dose: Not Given Sodium Chloride (Normal Saline) 500 mls @ 999 mls/hr IV .BOLUS ONE Stop: 09/24/16 09:30 Last Admin: 09/24/16 09:00 Dose: 999 mls/hr Lidocaine HCl (Xylocaine-Mpf 1%) Confirm Administered Dose 2 mls @ as directed .ROUTE .STK-MED ONE Stop: 09/24/16 09:31 Piperacillin Sod/Tazobactam (Sod 4.5 gm/ Sodium Chloride) 100 mls @ 200 mls/hr IV ONETIME ONE Stop: 09/24/16 10:59 Last Admin: 09/24/16 10:50 Dose: 200 mls/hr Albumin Human (Flexbumin 25%) 12.5 gm in 50 mls @ 100 mls/hr IV ONETIME ONE Stop: 09/24/16 12:08 Last Admin: 09/24/16 11:45 Dose: 100 mls/hr Albumin Human (Flexbumin 25%) 25 gm in 100 mls @ 100 mls/hr IV ONETIME ONE Stop: 09/24/16 13:28 Albumin Human (Flexbumin 25%) 25 gm in 50 mls @ 50 mls/hr IV ONETIME ONE Stop: 09/24/16 13:28 Albumin Human (Flexbumin 25%) 12.5 gm in 50 mls @ 100 mls/hr IV ONETIME ONE Stop: 09/24/16 13:59 Albumin Human (Flexbumin 25%) 12.5 gm in 50 mls @ 100 mls/hr IV Q30M [facility] Stop: 09/24/16 14:29 Last Admin: 09/24/16 13:45 Dose: 100 mls/hr Norepinephrine Bitartrate 8 mg (/ Dextrose/Water) 258 mls @ 60 mls/hr IV TITRATE [facility] Norepinephrine Bitartrate 8 mg (/ Dextrose/Water) 250 mls @ 58.14 mls/hr IV TITRATE [facility] Influenza Virus Vaccine (Fluzone/Fluarix Vaccine) 60 mcg IM .ONCE ONE Stop: 09/24/16 07:45 Iopamidol (Isovue-300 (61%)) 100 ml IVPUSH ONETIME ONE Stop: 09/23/16 14:23 Last Admin: 09/23/16 14:46 Dose: 100 ml Ketamine HCl (Ketalar) Confirm Administered Dose 500 mg .ROUTE .STK-MED ONE Stop: 09/23/16 19:10 Ketorolac Tromethamine (Toradol) 60 mg IVPUSH ONETIME ONE Stop: 09/23/16 21:59 Last Admin: 09/23/16 22:14 Dose: 60 mg Ketorolac Tromethamine (Toradol) 30 mg IVPUSH Q6H [facility] Stop: 09/26/16 10:01 Lidocaine HCl (Xylocaine-Mpf 1%) Confirm Administered Dose 30 ml .ROUTE .STK- MED ONE Stop: 09/23/16 18:58 Last Admin: 09/23/16 19:41 Dose: 8.5 ml Lidocaine HCl (Xylocaine 1%) Confirm Administered Dose 50 ml .ROUTE .STK-MED ONE Stop: 09/24/16 10:13 Last Admin: 09/24/16 10:53 Dose: Not Given Lidocaine HCl (Xylocaine 1%) 50 ml INJECT ONETIME ONE Stop: 09/24/16 10:24 Last Admin: 09/24/16 10:41 Dose: 50 ml Methylprednisolone Sodium Succinate (Solu-Medrol) Confirm Administered Dose 125 mg .ROUTE .STK-MED ONE Stop: 09/23/16 19:29 Methylprednisolone Sodium Succinate (Solu-Medrol) 40 mg IVPUSH Q8H [facility] Last Admin: 09/24/16 06:00 Dose: 40 mg Midazolam HCl (Versed 1 Mg/Ml) Confirm Administered Dose 2 mg .ROUTE .STK-MED ONE Stop: 09/23/16 19:09 Midazolam HCl (Versed 1 Mg/Ml) Confirm Administered Dose 2 mg .ROUTE .STK-MED ONE Stop: 09/24/16 10:19 Last Admin: 09/24/16 10:53 Dose: Not Given Ondansetron HCl (Zofran) 4 mg IVPUSH ONETIME ONE Stop: 09/23/16 12:33 Last Admin: 09/23/16 13:10 Dose: 4 mg Pantoprazole Sodium (Protonix Iv) 40 mg IVPUSH ONETIME ONE Stop: 09/23/16 12:36 Last Admin: 09/23/16 13:11 Dose: 40 mg Propofol (Diprivan 20 Ml) Confirm Administered Dose 200 mg .ROUTE .STK-MED ONE Stop: 09/23/16 17:10 Sodium Bicarbonate (Sodium Bicarbonate 8.4%) Confirm Administered Dose 50 meq .ROUTE .STK-MED ONE Stop: 09/24/16 14:17 Last Admin: 09/24/16 14:34 Dose: Not Given Sodium Bicarbonate (Sodium Bicarbonate 8.4%) 50 meq IVPUSH ONETIME ONE Stop: 09/24/16 14:34 Last Admin: 09/24/16 14:36 Dose: 50 meq Sodium Chloride (Saline Flush) 10 ml FLUSH ONETIME PRN PRN Reason: IV FLUSH - Exam Wound/Incisions: healing well Quality Assessment: supplemental oxygen, urine catheter General: sedated Lungs: Decreased breath sounds Cardiovascular: Regular Rate (sinus tachcardia ) Abdomen: no distension - Problem List Review Problem List Initiated/Reviewed/Updated: Yes - My Orders Last 24 Hours: Active Orders 24 hr Category Date Time Status Ambulate [RC] DAILY Care 09/23/16 21:19 Active Antiembolic Devices [RC] 10,22 Care 09/23/16 21:45 Active Antiembolic Devices [RC] PER UNIT ROUTINE Care 09/23/16 21:24 Inactive BIPAP [RT BiPAP/CPAP] [RC] ASDIRECTED Care 09/24/16 10:46 Active Murphy Catheter Insertion [Insert Urinary Catheter] [OM. Care 09/23/16 21:30 Ordered PC] Q24H NG [Gastrointestinal Tube Mgmt] [RC] Q4HR Care 09/23/16 21:20 Active Notify Provider Consults [RC] ASDIRECTED Care 09/23/16 21:42 Active Oxygen Therapy [RC] ASDIRECTED Care 09/23/16 22:26 Active RT Aerosol Therapy [RC] ASDIRECTED Care 09/23/16 21:45 Active RT Arterial Blood Gases, ABG [RC] Click To Edit Care 09/24/16 14:00 Active Urinary Catheter Assessment [RC] Q4HR Care 09/23/16 21:22 Active Consult to Physician [CONS] Urgent Cons 09/23/16 21:41 Active CXR [Chest 1V Frontal] [CR] Routine Exams 09/24/16 16:30 Ordered CRP [C-REACTIVE PROTEIN] [CHEM] DAILY Lab 09/25/16 05:00 Ordered LACTIC ACID [CHEM] DAILY Lab 09/25/16 05:00 Ordered LACTIC ACID [CHEM] Routine Lab 09/24/16 18:00 Ordered MAGNESIUM [CHEM] DAILY Lab 09/25/16 05:00 Ordered Budesonide [Pulmicort] Med 09/24/16 06:00 Active 0.5 mg NEB BIDRT Flunisolide [Nasalide Nasal [place]] Med 09/24/16 09:00 Active 0 ml NASBOTH BID HYDROmorphone [Dilaudid] Med 09/23/16 21:56 Active 1 mg IVPUSH Q2H PRN Ketorolac [Toradol] Med 09/24/16 04:00 Active 30 mg IVPUSH Q6H LORazepam [Ativan] Med 09/23/16 21:40 Active 0.5 mg IVPUSH Q8H PRN LORazepam [Ativan] Med 09/24/16 10:26 Active 1 mg IVPUSH Q6H PRN Levalbuterol HCl [Xopenex] Med 09/24/16 06:30 Active 1.25 mg NEB QIDRT Midazolam [Versed 1 MG/ML] Med 09/24/16 10:19 Active 1 mg IVPUSH ONETIME NS + KCl 20mEq/L [Normal Saline with 20 mEq KCl] 1,000 Med 09/24/16 07:00 Active ml IV ASDIRECTED Norepinephrine [Levophed] 8 mg Med 09/24/16 14:50 Active Dextrose 5% in Water 242 ml IV TITRATE Ondansetron [Zofran] Med 09/23/16 21:26 Active 4 mg IVPUSH Q8H PRN Pantoprazole [ProTONIX IV] Med 09/23/16 22:00 Active 40 mg IVPUSH Q12H Patient's Own Medication [Ptom] Med 09/24/16 09:00 Active 0 each NEB BID Phenylephrine [Job-Synephrine] 10 mg Med 09/24/16 14:45 Active Sodium Chloride 0.9% [Normal Saline] 99 ml IV TITRATE Phenylephrine [Job-Synephrine] 50 mg Med 09/24/16 15:45 Active Sodium Chloride 0.9% [Normal Saline] 95 ml IV TITRATE Piperacillin/Tazobactam [Zosyn] 4.5 gm Med 09/24/16 22:30 Active Sodium Chloride 0.9% [Normal Saline] 100 ml IV Q12H Sodium Bicarbonate [Sodium Bicarbonate 8.4%] 150 meq Med 09/24/16 12:14 Active Dextrose 5% in Water 1,000 ml IV ONETIME Sodium Chloride 0.9% [Normal Saline] 1,000 ml Med 09/24/16 12:30 Active IV ASDIRECTED Sodium Chloride 0.9% [Saline Flush] Med 09/24/16 09:08 Active 10 ml FLUSH ONETIME PRN methylPREDNISolone Sod Succ [Solu-MEDROL] Med 09/24/16 12:00 Active 125 mg IVPUSH Q6H metroNIDAZOLE/Normal Saline [Flagyl 500 MG in NS 100 ML Med 09/23/16 22:00 Active ] 500 mg Premix Bag 1 bag IV Q8H Arterial Line Insertion [OM.PC] Routine Ot 09/24/16 09:03 Ordered Assertion Communication Order [AST] Click To Edit Ot 09/23/16 21:23 Ordered SCD [Sequential Compression Device] [OM.PC] Routine Ot 09/23/16 21:45 Ordered Schedule Procedure [COMM] Routine Ot 09/24/16 09:03 Ordered Code Status [Resuscitation Status] Routine Resus Stat 09/24/16 10:24 Ordered Medication Orders Budesonide (Pulmicort) 0.5 mg NEB BIDRT [facility] Last Admin: 09/24/16 06:16 Dose: 0.5 mg Flunisolide (Nasalide Nasal [place]) 0 ml NASBOTH BID KIM Last Admin: 09/24/16 10:50 Dose: Hydromorphone HCl (Dilaudid) 1 mg IVPUSH Q2H PRN PRN Reason: Pain (moderate 4-6) Last Admin: 09/24/16 13:28 Dose: 1 mg Admin: 09/24/16 02:55 Dose: 1 mg Admin: 09/23/16 23:25 Dose: 1 mg Metronidazole 500 mg/ Premix 100 mls @ 100 mls/hr IV Q8H [facility] Last Admin: 09/24/16 15:08 Dose: 100 mls/hr Infusion: 09/24/16 07:00 Dose: 100 mls/hr Admin: 09/24/16 06:00 Dose: 100 mls/hr Infusion: 09/23/16 23:05 Dose: 0 mls/hr Admin: 09/23/16 21:46 Dose: 100 mls/hr Potassium Chloride/Sodium Chloride (Normal Saline With 20 Meq Kcl) 1,000 mls @ 100 mls/hr IV ASDIRECTED [facility] Last Admin: 09/24/16 08:56 Dose: 100 mls/hr Piperacillin Sod/Tazobactam (Sod 4.5 gm/ Sodium Chloride) 100 mls @ 25 mls/hr IV Q12H [facility] Sodium Chloride (Normal Saline) 1,000 mls @ 999 mls/hr IV ASDIRECTED [facility] Last Admin: 09/24/16 12:13 Dose: 999 mls/hr Sodium Bicarbonate 150 meq/ (Dextrose/Water) 1,150 mls @ 75 mls/hr IV ONETIME ONE Stop: 09/25/16 03:33 Last Admin: 09/24/16 12:37 Dose: 75 mls/hr Phenylephrine HCl 10 mg/ (Sodium Chloride) 100 mls @ 36 mls/hr IV TITRATE KIM; 60 MCG/MIN PRN Reason: Protocol Last Admin: 09/24/16 15:06 Dose: 60 mcg/min, 36 mls/hr Norepinephrine Bitartrate 8 mg (/ Dextrose/Water) 250 mls @ 58.14 mls/hr IV TITRATE KIM PRN Reason: Protocol Phenylephrine HCl 50 mg/ (Sodium Chloride) 100 mls @ 7.2 mls/hr IV TITRATE KIM ; 60 MCG/MIN PRN Reason: Protocol Ketorolac Tromethamine (Toradol) 30 mg IVPUSH Q6H [facility] Stop: 09/25/16 10:01 Last Admin: 09/24/16 15:21 Dose: 30 mg Admin: 09/24/16 09:25 Dose: 30 mg Admin: 09/24/16 04:24 Dose: 30 mg Levalbuterol HCl (Xopenex) 1.25 mg NEB QIDRT [facility] Last Admin: 09/24/16 11:13 Dose: 1.25 mg Admin: 09/24/16 06:41 Dose: 1.25 mg Lorazepam (Ativan) 0.5 mg IVPUSH Q8H PRN PRN Reason: Anxiety Last Admin: 09/24/16 06:09 Dose: 0.5 mg Lorazepam (Ativan) 1 mg IVPUSH Q6H PRN PRN Reason: restlessness Last Admin: 09/24/16 11:04 Dose: 1 mg Methylprednisolone Sodium Succinate (Solu-Medrol) 125 mg IVPUSH Q6H [facility] Last Admin: 09/24/16 12:40 Dose: 125 mg Midazolam HCl (Versed 1 Mg/Ml) 1 mg IVPUSH ONETIME [facility] Last Admin: 09/24/16 10:41 Dose: 1 mg Ondansetron HCl (Zofran) 4 mg IVPUSH Q8H PRN PRN Reason: Nausea Last Admin: 09/23/16 21:37 Dose: 4 mg Pantoprazole Sodium (Protonix Iv) 40 mg IVPUSH Q12H [facility] Last Admin: 09/24/16 11:08 Dose: 40 mg Admin: 09/23/16 23:16 Dose: 40 mg Arformoterol 1 Inh 0 each NEB BID [facility] Last Admin: 09/24/16 10:51 Dose: Sodium Chloride (Saline Flush) 10 ml FLUSH ONETIME PRN PRN Reason: IV FLUSH - Plan Plan (Free Text/Narrative):: pt on pressure spoort with scant urine output abdomen soft wound healing ass septic from small bowel obstruction due to bacterial translocation as a result of her SBO complicated by pt being on steriods for her COD with hypotension. plan discussed problem with family will likely need intubation [facility]
--- NOTE | 2016-09-24 16:06 | CR ---
Chest: Portable view of the chest was obtained. Comparison: Previous chest x-ray performed earlier on the same day (7:30 AM) Heart size and mediastinum are stable. Linear scarring is seen within both lungs. No acute infiltrates are seen. Endotracheal tube is seen with tip lying approximately 1.4 cm above the kellie. Nasogastric tube is seen with tip lying within the stomach. Left-sided infusion port is seen. Scoliosis is present within the spine. Impression: 1. Tip of endotracheal tube lying about 1.4 cm above the kellie. 2. Nasogastric tube with tip lying within the stomach. 3. Other stable findings as described above. Diagnostic code #3
--- NOTE | 2016-09-24 16:09 | PCM.SN ---
- Free Text/Narrative Note: Anesthesiology Procedure Note - STAT Intubation in ICU Requested by Dr Mccarthy for failing Respiratory status Pt known to me, HR 110s, BP low 80s/60s, Tachypneic. SaO2 upper 80s%. 45 kg weight. Pre-ox with AMBU 15 L. Highest SaO2 obtained 98%. Etomidate 14 mg, SuccynilCholine 100 mg IVP. DLx1 MAC 3 Grade I view ETT #7 with stylet placed with ease. Stylet removed. advanced to 21 cm at gums. Bilateral Breath Sounds equal Good ETCO2 on monitor and color change on indicator ETT secured @ 21 cm at gums. Post procedure CXR showed good placement of ETT ~2 cm above Danica Pt placed on Ventilator TV 400 FiO2 50%, RR 14 PEEP 5, assist control. No complications.
[2016-09-24] MEDS ORDERED: Etomidate 2 MG/ML 20 ML SDV IVPUSH STA (16:12)
[2016-09-24] MEDS: PHENYLEPHRINE IV SCH ×2 (16:57→17:41)
[2016-09-24] MEDS: SODIUM CHLORIDE 0.9% IV SCH ×2 (16:57→17:41)
[2016-09-24] MEDS ORDERED: Atropine 0.1 MG/ML 10 ML Syringe ONE (17:04)
[2016-09-24] MEDS ORDERED: EPINEPHRINE IV SCH ×2 (17:30)
[2016-09-24] MEDS ORDERED: DEXTROSE 5% IV SCH ×2 (17:30)
[2016-09-24] MEDS ORDERED: WATER IV SCH ×2 (17:30)
[2016-09-24 18:25] VITALS: BP 35/25
[2016-09-24] MEDS ORDERED: Piperacillin/Tazobactam 4.5 GM in Sodium Chloride 0.9% 100 ML IV SCH (22:30)
[2016-09-25] MEDS ORDERED: Ketorolac 30 MG/ML SDV IVPUSH SCH (04:00)
--- NOTE | 2016-09-25 05:32 | PCM.SURGPN ---
- General Info Date of Service: 09/25/16 - Patient Data Vitals - most recent: Last Vital Signs Temp 99.9 F 09/24/16 16:00 Pulse 83 09/24/16 17:55 Resp 18 09/24/16 18:20 BP 35/25 L 09/24/16 18:20 Pulse Ox 89 L 09/24/16 18:00 Weight - most recent: 43.176 kg I&O - last 24 hours: Intake & Output 09/24/16 09/24/16 09/25/16 15:59 23:59 07:59 Intake Total 4702 Output Total 203 Balance -203 4702 Lab Results last 24 hrs: Laboratory Results - last 24 hr 09/24/16 09/24/16 09/24/16 Range/Units 06:55 06:55 06:55 WBC 7.82 (3.98-10.04) K/mm3 RBC 3.83 L (3.98-5.22) M/mm3 Hgb 12.0 (11.2-15.7) gm/L Hct 37.1 (34.1-44.9) % MCV 96.9 H (79.4-94.8) fl MCH 31.3 (25.6-32.2) pg MCHC 32.3 (32.2-35.5) g/dl RDW Std Deviation 47.3 H (36.4-46.3) fL Plt Count 359 (182-369) K/mm3 MPV 9.4 (9.4-12.3) fl Puncture Site ABG pH (7.35-7.45) ABG pCO2 (35.0-45.0) mmHg ABG pO2 (80.0-100.0) mmHg ABG HCO3 (22.0-26.0) meq/L ABG O2 Saturation (96.0-97.0) % ABG Base Excess (-2-2.0) A-a Gradient mmHg O2 Delivery Device FiO2 (21.00-100.00) % Sodium 142 (136-145) mEq/L Potassium 3.2 L (3.5-5.1) mEq/L Chloride 103 (98-107) mEq/L Carbon Dioxide 25 (21-32) mEq/L Anion Gap 17.2 H (5-15) BUN 45 H (7-18) mg/dL Creatinine 1.9 H (0.55-1.02) mg/dL Est Cr Clr Drug Dosing 16.90 mL/min Estimated GFR (MDRD) 26 (>60) mL/min BUN/Creatinine Ratio 23.7 H (14-18) Glucose 108 (83-115) mg/dL Lactic Acid (0.4-2.0) mmol/L Calcium 7.4 L (8.5-10.1) mg/dL Magnesium 1.9 (1.8-2.4) mg/dl Total Bilirubin 0.7 (0.2-1.0) mg/dL AST 44 H (15-37) U/L ALT 20 (14-59) U/L Alkaline Phosphatase 65 (46-116) U/L C-Reactive Protein 10.9 H* (<1.0) mg/dL Total Protein 4.9 L (6.4-8.2) g/dl Albumin 3.0 L (3.4-5.0) g/dl Globulin 1.9 gm/dL Albumin/Globulin Ratio 1.6 (1-2) 09/24/16 09/24/16 09/24/16 Range/Units 06:55 10:44 12:05 WBC (3.98-10.04) K/mm3 RBC (3.98-5.22) M/mm3 Hgb (11.2-15.7) gm/L Hct (34.1-44.9) % MCV (79.4-94.8) fl MCH (25.6-32.2) pg MCHC (32.2-35.5) g/dl RDW Std Deviation (36.4-46.3) fL Plt Count (182-369) K/mm3 MPV (9.4-12.3) fl Puncture Site left radial art line ABG pH 7.26 L (7.35-7.45) ABG pCO2 44.5 (35.0-45.0) mmHg ABG pO2 65.0 L (80.0-100.0) mmHg ABG HCO3 19.1 L (22.0-26.0) meq/L ABG O2 Saturation 89.8 L (96.0-97.0) % ABG Base Excess -7.3 L (-2-2.0) A-a Gradient 149 mmHg O2 Delivery Device Bipap 12/6 FiO2 40.00 (21.00-100.00) % Sodium (136-145) mEq/L Potassium (3.5-5.1) mEq/L Chloride (98-107) mEq/L Carbon Dioxide (21-32) mEq/L Anion Gap (5-15) BUN (7-18) mg/dL Creatinine (0.55-1.02) mg/dL Est Cr Clr Drug Dosing mL/min Estimated GFR (MDRD) (>60) mL/min BUN/Creatinine Ratio (14-18) Glucose (83-115) mg/dL Lactic Acid 5.7 H 4.0 H (0.4-2.0) mmol/L Calcium (8.5-10.1) mg/dL Magnesium (1.8-2.4) mg/dl Total Bilirubin (0.2-1.0) mg/dL AST (15-37) U/L ALT (14-59) U/L Alkaline Phosphatase (46-116) U/L C-Reactive Protein (<1.0) mg/dL Total Protein (6.4-8.2) g/dl Albumin (3.4-5.0) g/dl Globulin gm/dL Albumin/Globulin Ratio (1-2) 09/24/16 09/24/16 09/24/16 Range/Units 14:00 14:00 14:00 WBC (3.98-10.04) K/mm3 RBC (3.98-5.22) M/mm3 Hgb 12.8 (11.2-15.7) gm/L Hct (34.1-44.9) % MCV (79.4-94.8) fl MCH (25.6-32.2) pg MCHC (32.2-35.5) g/dl RDW Std Deviation (36.4-46.3) fL Plt Count (182-369) K/mm3 MPV (9.4-12.3) fl Puncture Site Left radial art line ABG pH 7.19 L* (7.35-7.45) ABG pCO2 51.3 H (35.0-45.0) mmHg ABG pO2 54.0 L (80.0-100.0) mmHg ABG HCO3 18.9 L (22.0-26.0) meq/L ABG O2 Saturation 81.3 L (96.0-97.0) % ABG Base Excess -9.1 L (-2-2.0) A-a Gradient 151 mmHg O2 Delivery Device Bipap 12 6 FiO2 40.00 (21.00-100.00) % Sodium 139 (136-145) mEq/L Potassium 3.9 (3.5-5.1) mEq/L Chloride 104 (98-107) mEq/L Carbon Dioxide 20 L (21-32) mEq/L Anion Gap 18.9 H (5-15) BUN 47 H (7-18) mg/dL Creatinine 2.2 H (0.55-1.02) mg/dL Est Cr Clr Drug Dosing 14.60 mL/min Estimated GFR (MDRD) 22 (>60) mL/min BUN/Creatinine Ratio 21.4 H (14-18) Glucose 162 H (83-115) mg/dL Lactic Acid (0.4-2.0) mmol/L Calcium 6.5 L (8.5-10.1) mg/dL Magnesium (1.8-2.4) mg/dl Total Bilirubin (0.2-1.0) mg/dL AST (15-37) U/L ALT (14-59) U/L Alkaline Phosphatase (46-116) U/L C-Reactive Protein (<1.0) mg/dL Total Protein (6.4-8.2) g/dl Albumin (3.4-5.0) g/dl Globulin gm/dL Albumin/Globulin Ratio (1-2) 09/24/16 Range/Units 18:13 WBC (3.98-10.04) K/mm3 RBC (3.98-5.22) M/mm3 Hgb (11.2-15.7) gm/L Hct (34.1-44.9) % MCV (79.4-94.8) fl MCH (25.6-32.2) pg MCHC (32.2-35.5) g/dl RDW Std Deviation (36.4-46.3) fL Plt Count (182-369) K/mm3 MPV (9.4-12.3) fl Puncture Site ABG pH (7.35-7.45) ABG pCO2 (35.0-45.0) mmHg ABG pO2 (80.0-100.0) mmHg ABG HCO3 (22.0-26.0) meq/L ABG O2 Saturation (96.0-97.0) % ABG Base Excess (-2-2.0) A-a Gradient mmHg O2 Delivery Device FiO2 (21.00-100.00) % Sodium (136-145) mEq/L Potassium (3.5-5.1) mEq/L Chloride (98-107) mEq/L Carbon Dioxide (21-32) mEq/L Anion Gap (5-15) BUN (7-18) mg/dL Creatinine (0.55-1.02) mg/dL Est Cr Clr Drug Dosing mL/min Estimated GFR (MDRD) (>60) mL/min BUN/Creatinine Ratio (14-18) Glucose (83-115) mg/dL Lactic Acid 12.3 H (0.4-2.0) mmol/L Calcium (8.5-10.1) mg/dL Magnesium (1.8-2.4) mg/dl Total Bilirubin (0.2-1.0) mg/dL AST (15-37) U/L ALT (14-59) U/L Alkaline Phosphatase (46-116) U/L C-Reactive Protein (<1.0) mg/dL Total Protein (6.4-8.2) g/dl Albumin (3.4-5.0) g/dl Globulin gm/dL Albumin/Globulin Ratio (1-2) Med Orders - Current: Current Medications Discontinued Medications Albuterol (Proventil Neb Soln) 2.5 mg NEB ONETIME ONE Stop: 09/23/16 18:38 Last Admin: 09/23/16 18:42 Dose: 2.5 mg Albuterol (Proventil Neb Soln) Confirm Administered Dose 2.5 mg .ROUTE .STK-MED ONE Stop: 09/23/16 18:42 Last Admin: 09/23/16 21:31 Dose: Not Given Atropine Sulfate (Atropine 0.1 Mg/Ml) Confirm Administered Dose 1 mg .ROUTE .STK -MED ONE Stop: 09/24/16 17:05 Last Admin: 09/24/16 19:26 Dose: Not Given Budesonide (Pulmicort) 0.5 mg NEB BIDRT [facility] Last Admin: 09/24/16 06:16 Dose: 0.5 mg Bupivacaine HCl (Marcaine 0.5%) Confirm Administered Dose 30 ml .ROUTE .STK-MED ONE Stop: 09/23/16 18:58 Last Admin: 09/23/16 19:41 Dose: 8.5 ml Cefazolin Sodium (Ancef) Confirm Administered Dose 2 gm .ROUTE .STK-MED ONE Stop: 09/23/16 19:09 Diatrizoate Meglum/Diatrizoate Sod (Gastrografin 37%) 90 ml PO ONETIME ONE Stop: 09/23/16 14:23 Last Admin: 09/23/16 14:45 Dose: 90 ml Etomidate (Amidate) 14 mg IVPUSH ONETIME ONE Stop: 09/24/16 15:56 Etomidate (Amidate) 14 mg IVPUSH ONETIME STA Stop: 09/24/16 16:13 Last Admin: 09/24/16 19:26 Dose: Not Given Flunisolide (Nasalide Nasal [place]) 0 ml NASBOTH BID KIM Last Admin: 09/24/16 10:50 Dose: Not Given Furosemide (Lasix) 10 mg IVPUSH NOW ONE Stop: 09/23/16 22:09 Last Admin: 09/24/16 07:30 Dose: Not Given Furosemide (Lasix) 10 mg IVPUSH NOW ONE Stop: 09/24/16 09:01 Furosemide (Lasix) 10 mg IVPUSH NOW ONE Stop: 09/23/16 22:46 Last Admin: 09/24/16 00:33 Dose: Not Given Furosemide (Lasix) 20 mg IVPUSH ONETIME ONE Stop: 09/24/16 08:01 Last Admin: 09/24/16 10:50 Dose: Not Given Hydrocortisone Sodium Succinate (Solu-Cortef) 50 mg IVPUSH Q6H KIM Last Admin: 09/24/16 07:30 Dose: Not Given Hydromorphone HCl (Dilaudid) 0.5 mg IVPUSH ONETIME ONE Stop: 09/23/16 13:08 Last Admin: 09/23/16 13:12 Dose: 0.5 mg Hydromorphone HCl (Dilaudid) 0.5 mg IVPUSH ONETIME ONE Stop: 09/23/16 14:08 Last Admin: 09/23/16 14:12 Dose: 0.5 mg Hydromorphone HCl (Dilaudid) 0.5 mg IVPUSH Q2H PRN PRN Reason: Pain Last Admin: 09/23/16 21:37 Dose: 0.5 mg Hydromorphone HCl (Dilaudid) 1 mg IVPUSH ONETIME ONE Stop: 09/23/16 21:40 Last Admin: 09/23/16 22:35 Dose: Not Given Hydromorphone HCl (Dilaudid) 1 mg IVPUSH Q2H PRN PRN Reason: Pain (moderate 4-6) Last Admin: 09/24/16 13:28 Dose: 1 mg Sodium Chloride (Normal Saline) 1,000 mls @ 125 mls/hr IV ASDIRECTED [facility] Last Admin: 09/23/16 13:09 Dose: 125 mls/hr Sodium Chloride (Normal Saline) 500 mls @ 500 mls/hr IV .BOLUS ONE Stop: 09/23/16 15:35 Last Admin: 09/23/16 21:30 Dose: Not Given Potassium Chloride 10 meq/ (Premix) 100 mls @ 100 mls/hr IV ASDIRECTED [facility] Last Infusion: 09/23/16 21:46 Dose: Infused Cefoxitin Sodium 2 gm/ Premix 50 mls @ 100 mls/hr IV ONETIME ONE Stop: 09/23/16 16:29 Last Admin: 09/23/16 16:11 Dose: 100 mls/hr Lidocaine HCl (Xylocaine-Mpf 1%) Confirm Administered Dose 2 mls @ as directed .ROUTE .STK-MED ONE Stop: 09/23/16 17:10 Sodium Chloride (Normal Saline) 500 mls @ 999 mls/hr IV ONETIME ONE Stop: 09/23/16 18:10 Last Admin: 09/23/16 17:46 Dose: 999 mls/hr Sodium Chloride (Normal Saline) 1,000 mls @ 999 mls/hr IV ONETIME ONE Stop: 09/23/16 19:34 Last Admin: 09/23/16 21:31 Dose: Not Given Lactated Ringer's (Ringers, Lactated) Confirm Administered Dose 1,000 mls @ as directed .ROUTE .STK-MED ONE Stop: 09/23/16 20:09 Cefoxitin Sodium 1 gm/ Premix 50 mls @ 100 mls/hr IV Q8H KIM Last Admin: 09/24/16 10:54 Dose: Not Given Lactated Ringer's (Ringers, Lactated) 1,000 mls @ 75 mls/hr IV ASDIRECTED KIM Last Admin: 09/23/16 21:46 Dose: 75 mls/hr Metronidazole 500 mg/ Premix 100 mls @ 100 mls/hr IV Q8H KIM Last Admin: 09/24/16 15:08 Dose: 100 mls/hr Albumin Human (Flexbumin 25%) 25 gm in 100 mls @ 100 mls/hr IV ONETIME ONE Stop: 09/24/16 02:59 Albumin Human (Flexbumin 25%) 25 gm in 100 mls @ 100 mls/hr IV ONETIME ONE Stop: 09/23/16 23:14 Last Infusion: 09/23/16 23:08 Dose: Infused Albumin Human (Flexbumin 25%) Confirm Administered Dose 50 mls @ as directed .ROUTE .STK-MED ONE Stop: 09/23/16 22:19 Last Admin: 09/23/16 22:36 Dose: Not Given Norepinephrine Bitartrate 4 mg (/ Dextrose/Water) 250 mls @ 7.5 mls/hr IV TITRATE KIM; 2 MCG/MIN PRN Reason: Protocol Last Titration: 09/24/16 13:50 Dose: 32 mcg/min, 120 mls/hr Sodium Chloride (Normal Saline) 1,000 mls @ 999 mls/hr IV ONETIME ONE Stop: 09/24/16 02:00 Last Admin: 09/24/16 00:36 Dose: Not Given Potassium Chloride/Sodium Chloride (Normal Saline With 20 Meq Kcl) 1,000 mls @ 100 mls/hr IV ASDIRECTED [facility] Last Admin: 09/24/16 08:56 Dose: 100 mls/hr Albumin Human (Flexbumin 25%) 25 gm in 100 mls @ 100 mls/hr IV ONETIME ONE Stop: 09/24/16 01:36 Last Infusion: 09/24/16 01:30 Dose: Infused Albumin Human (Flexbumin 25%) 25 gm in 100 mls @ 100 mls/hr IV ONETIME ONE Stop: 09/24/16 07:23 Last Admin: 09/24/16 06:31 Dose: 100 mls/hr Albumin Human (Flexbumin 25%) Confirm Administered Dose 50 mls @ as directed .ROUTE .STK-MED ONE Stop: 09/24/16 06:28 Last Admin: 09/24/16 10:50 Dose: Not Given Sodium Chloride (Normal Saline) 500 mls @ 999 mls/hr IV .BOLUS ONE Stop: 09/24/16 09:30 Last Admin: 09/24/16 09:00 Dose: 999 mls/hr Lidocaine HCl (Xylocaine-Mpf 1%) Confirm Administered Dose 2 mls @ as directed .ROUTE .STK-MED ONE Stop: 09/24/16 09:31 Piperacillin Sod/Tazobactam (Sod 4.5 gm/ Sodium Chloride) 100 mls @ 200 mls/hr IV ONETIME ONE Stop: 09/24/16 10:59 Last Admin: 09/24/16 10:50 Dose: 200 mls/hr Piperacillin Sod/Tazobactam (Sod 4.5 gm/ Sodium Chloride) 100 mls @ 25 mls/hr IV Q12H [facility] Albumin Human (Flexbumin 25%) 12.5 gm in 50 mls @ 100 mls/hr IV ONETIME ONE Stop: 09/24/16 12:08 Last Admin: 09/24/16 11:45 Dose: 100 mls/hr Sodium Chloride (Normal Saline) 1,000 mls @ 999 mls/hr IV ASDIRECTED [facility] Last Admin: 09/24/16 12:13 Dose: 999 mls/hr Sodium Bicarbonate 150 meq/ (Dextrose/Water) 1,150 mls @ 75 mls/hr IV ONETIME ONE Stop: 09/25/16 03:33 Last Admin: 09/24/16 12:37 Dose: 75 mls/hr Albumin Human (Flexbumin 25%) 25 gm in 100 mls @ 100 mls/hr IV ONETIME ONE Stop: 09/24/16 13:28 Last Admin: 09/24/16 19:27 Dose: Not Given Albumin Human (Flexbumin 25%) 25 gm in 50 mls @ 50 mls/hr IV ONETIME ONE Stop: 09/24/16 13:28 Last Admin: 09/24/16 19:27 Dose: Not Given Albumin Human (Flexbumin 25%) 12.5 gm in 50 mls @ 100 mls/hr IV ONETIME ONE Stop: 09/24/16 13:59 Albumin Human (Flexbumin 25%) 12.5 gm in 50 mls @ 100 mls/hr IV Q30M KIM Stop: 09/24/16 14:29 Last Admin: 09/24/16 13:45 Dose: 100 mls/hr Norepinephrine Bitartrate 8 mg (/ Dextrose/Water) 258 mls @ 60 mls/hr IV TITRATE KIM Norepinephrine Bitartrate 8 mg (/ Dextrose/Water) 250 mls @ 58.14 mls/hr IV TITRATE KIM Phenylephrine HCl 10 mg/ (Sodium Chloride) 100 mls @ 36 mls/hr IV TITRATE KIM; 60 MCG/MIN PRN Reason: Protocol Last Infusion: 09/24/16 16:28 Dose: 1,665 mcg/min, 999 mls/hr Norepinephrine Bitartrate 8 mg (/ Dextrose/Water) 250 mls @ 58.14 mls/hr IV TITRATE KIM PRN Reason: Protocol Last Admin: 09/24/16 17:06 Dose: 999 mls/hr, 999 mls/hr Phenylephrine HCl 50 mg/ (Sodium Chloride) 100 mls @ 7.2 mls/hr IV TITRATE KIM ; 60 MCG/MIN PRN Reason: Protocol Last Admin: 09/24/16 17:41 Dose: 8,325 mcg/min, 999 mls/hr Propofol (Diprivan 100 Ml) 100 mls @ 1.295 mls/hr IV TITRATE KIM; 5 MCG/KG/MIN PRN Reason: Protocol Last Admin: 09/24/16 16:16 Dose: 5 mcg/kg/min, 1.295 mls/hr Propofol (Diprivan 100 Ml) Confirm Administered Dose 100 mls @ as directed .ROUTE .STK-MED ONE Stop: 09/24/16 16:02 Last Admin: 09/24/16 19:26 Dose: Not Given Epinephrine HCl 5 mg/ Dextrose (/Water) 505 mls @ 26.16 mls/hr IV TITRATE KIM; 0.1 MCG/KG/MIN PRN Reason: Protocol Last Titration: 09/24/16 18:02 Dose: 0.3 mcg/kg/min, 78.49 mls/hr Influenza Virus Vaccine (Fluzone/Fluarix Vaccine) 60 mcg IM .ONCE ONE Stop: 09/24/16 07:45 Iopamidol (Isovue-300 (61%)) 100 ml IVPUSH ONETIME ONE Stop: 09/23/16 14:23 Last Admin: 09/23/16 14:46 Dose: 100 ml Ketamine HCl (Ketalar) Confirm Administered Dose 500 mg .ROUTE .STK-MED ONE Stop: 09/23/16 19:10 Ketorolac Tromethamine (Toradol) 60 mg IVPUSH ONETIME ONE Stop: 09/23/16 21:59 Last Admin: 09/23/16 22:14 Dose: 60 mg Ketorolac Tromethamine (Toradol) 30 mg IVPUSH Q6H [facility] Stop: 09/26/16 10:01 Ketorolac Tromethamine (Toradol) 30 mg IVPUSH Q6H [facility] Stop: 09/25/16 10:01 Last Admin: 09/24/16 15:21 Dose: 30 mg Levalbuterol HCl (Xopenex) 1.25 mg NEB QIDRT KIM Last Admin: 09/24/16 16:07 Dose: 1.25 mg Lidocaine HCl (Xylocaine-Mpf 1%) Confirm Administered Dose 30 ml .ROUTE .STK- MED ONE Stop: 09/23/16 18:58 Last Admin: 09/23/16 19:41 Dose: 8.5 ml Lidocaine HCl (Xylocaine 1%) Confirm Administered Dose 50 ml .ROUTE .STK-MED ONE Stop: 09/24/16 10:13 Last Admin: 09/24/16 10:53 Dose: Not Given Lidocaine HCl (Xylocaine 1%) 50 ml INJECT ONETIME ONE Stop: 09/24/16 10:24 Last Admin: 09/24/16 10:41 Dose: 50 ml Lorazepam (Ativan) 0.5 mg IVPUSH Q8H PRN PRN Reason: Anxiety Last Admin: 09/24/16 06:09 Dose: 0.5 mg Lorazepam (Ativan) 1 mg IVPUSH Q6H PRN PRN Reason: restlessness Last Admin: 09/24/16 11:04 Dose: 1 mg Methylprednisolone Sodium Succinate (Solu-Medrol) Confirm Administered Dose 125 mg .ROUTE .STK-MED ONE Stop: 09/23/16 19:29 Methylprednisolone Sodium Succinate (Solu-Medrol) 40 mg IVPUSH Q8H [facility] Last Admin: 09/24/16 06:00 Dose: 40 mg Methylprednisolone Sodium Succinate (Solu-Medrol) 125 mg IVPUSH Q6H [facility] Last Admin: 09/24/16 19:30 Dose: Not Given Midazolam HCl (Versed 1 Mg/Ml) Confirm Administered Dose 2 mg .ROUTE .STK-MED ONE Stop: 09/23/16 19:09 Midazolam HCl (Versed 1 Mg/Ml) Confirm Administered Dose 2 mg .ROUTE .STK-MED ONE Stop: 09/24/16 10:19 Last Admin: 09/24/16 10:53 Dose: Not Given Midazolam HCl (Versed 1 Mg/Ml) 1 mg IVPUSH ONETIME [facility] Last Admin: 09/24/16 10:41 Dose: 1 mg Ondansetron HCl (Zofran) 4 mg IVPUSH ONETIME ONE Stop: 09/23/16 12:33 Last Admin: 09/23/16 13:10 Dose: 4 mg Ondansetron HCl (Zofran) 4 mg IVPUSH Q8H PRN PRN Reason: Nausea Last Admin: 09/23/16 21:37 Dose: 4 mg Pantoprazole Sodium (Protonix Iv) 40 mg IVPUSH ONETIME ONE Stop: 09/23/16 12:36 Last Admin: 09/23/16 13:11 Dose: 40 mg Pantoprazole Sodium (Protonix Iv) 40 mg IVPUSH Q12H [facility] Last Admin: 09/24/16 11:08 Dose: 40 mg Arformoterol 1 Inh 0 each NEB BID [facility] Last Admin: 09/24/16 10:51 Dose: Not Given Propofol (Diprivan 20 Ml) Confirm Administered Dose 200 mg .ROUTE .STK-MED ONE Stop: 09/23/16 17:10 Sodium Bicarbonate (Sodium Bicarbonate 8.4%) Confirm Administered Dose 50 meq .ROUTE .STK-MED ONE Stop: 09/24/16 14:17 Last Admin: 09/24/16 14:34 Dose: Not Given Sodium Bicarbonate (Sodium Bicarbonate 8.4%) 50 meq IVPUSH ONETIME ONE Stop: 09/24/16 14:34 Last Admin: 09/24/16 14:36 Dose: 50 meq Sodium Chloride (Saline Flush) 10 ml FLUSH ONETIME PRN PRN Reason: IV FLUSH Sodium Chloride (Saline Flush) 10 ml FLUSH ONETIME PRN PRN Reason: IV FLUSH Succinylcholine Chloride (Quelicin) 100 mg IV NOW STA Stop: 09/24/16 15:56 Succinylcholine Chloride (Quelicin) 20 mg IV ONETIME STA Stop: 09/24/16 16:12 Last Admin: 09/24/16 19:26 Dose: Not Given - Problem List Review Problem List Initiated/Reviewed/Updated: Yes - My Orders Last 24 Hours: Active Orders 24 hr Category Date Time Status BIPAP [RT BiPAP/CPAP] [] ASDIRECTED Care 09/24/16 10:46 Active Ventilator Assessment [RT Ventilator, Adult] [] Care 09/24/16 15:51 Active ASDIRECTED Arterial Line Insertion [OM.PC] Routine Oth 09/24/16 09:03 Ordered Schedule Procedure [COMM] Routine Oth 09/24/16 09:03 Ordered Code Status [Resuscitation Status] Routine Resus Stat 09/24/16 10:24 Ordered - Plan Plan (Free Text/Narrative):: discharge dictated PARUL
--- NOTE | 2016-09-26 00:55 | DISCH ---
ADMISSION DATE: 09/23/2016 DISCHARGE DATE: 09/24/2016 HISTORY: This is a 76-year-old, who came in through the emergency room on 09/23/2016. She had about a 4-day history of being sick with nausea and vomiting. She was seen in the emergency room at approximately about 10 o'clock in the morning. Noted that she not had any bowel movement and has been taking stool softeners, laxatives, and she had noted abdominal distention. CT scan was performed showing small bowel entrapped in the left femoral hernia with a small amount of reactive fluid due to the small bowel obstruction due to the incarceration. There was also a femoral hernia on the right, but no bowel contained within it and a large inguinal hernia also on the right. 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 She has had some bladder prolapse and UTI and last year fractured the pelvis and hip, which was repaired. Surgical consultation was obtained at that time. Other pertinent findings were low potassium of 2.5 and elevated white count of 25,000. In addition to the above findings, medications reviewed mainly for treatment of COPD, for which she was on chronic prednisone use 20 mg daily. PHYSICAL EXAMINATION: GENERAL: At the time admission showed a patient who was in discomfort. EYES: Sclerae white. Extraocular muscle motion normal. Oral cavity dry. NECK: Supple. LUNGS: Clear. ABDOMEN: Distended and no specific tenderness except in the femoral area on the left where there is a small lump, which represented the incarcerated femoral hernia. There is also a large right inguinal hernia contained but no obstruction noted or tenderness noted in this area. Discussion was then ensued. Surgical consultation was done about 1529 and surgery was anticipated discussed. However, the family after discussing with Anesthesia was interested in going to [place], but after discussing with Dr. Baker, he felt that the surgery should be done immediately in [place]. The family was accepting this recommendation. There is a surgical case before and there was some delay and the patient was not transported to surgery until 1913. During the surgery, the patient did have a low blood pressure and did require pressor support using ephedrine. The case was done under local and MAC analgesia in which the bowel was brought out through the opening the femoral area and necrosis of the antimesenteric border of the bowel was noted. This was resected and anastomosis done and the hernia repaired. The patient's postoperative course was that of the need for antibiotics, cefoxitin and stress steroids. She was alert. Abdomen was soft. Lungs were clear. She was oxygenating and the pressure began to drop about 20 to 30 and she was required pressor support with norepinephrine. Antibiotics at that time were changed to piperacillin and it was noted that her lactic acid, which in the emergency room was 2.1 had risen to about 7.0 and 5.7 respectively following day. The patient in morning was given albumin and her pressor support was continued consisting of Levophed. She was placed on CPAP for oxygenation. Later in the afternoon, she was intubated. Stress steroids were continued. Murphy catheter was in and urine output was scant during her postop. Hospitalist managed the medical care. On examination in the morning, her abdomen was soft and wound was healing without problem. However, towards 3 o'clock in the afternoon of first postoperative day, having been on Levophed for some time, the abdomen became distended. The patient's pressure dropped and was unresponsive to Levophed and she became unresponsive. White count had come from 25,000 to 7000, hemoglobin remained stable from 14 to 12, and platelet count remained in the normal range. Potassium had been managed to a level of 3.9. Her CO2 is low and she was acidotic at 20. Creatinine toan to 2.2. The patient's Levophed was discontinued and she . The patient at 1921 on 09/24/2016. DIAGNOSES: 1. Small bowel obstruction secondary to femoral hernia with bowel necrosis, status post surgery and repair. 2. sepsis unresponsive to medical treatment. CONDITION ON DISCHARGE: Demise. FINAL DIAGNOSIS: DISCHARGE MEDICATIONS: DIET: ACTIVITY: FOLLOW-UP: MMLIYAH /[id number]
== END 2016-09-24 21:15 | disposition expired | DRG 344 ==
LOC: JD.ED 11:45 → JD.SDS 16:40 → JD.ICU 21:15 → JD.MS 09-24 13:31 → JD.ICU 09-24 13:32
PROVIDERS: ADMIT Surgery; ATTEND Surgery
PROC: 0YQ80ZZ Repair Left Femoral Region, Open Approach (ICD-10-PCS; principal; 2016-09-23)
PROC: 0DB80ZX Excision of Small Intestine, Open Approach, Diagnostic (ICD-10-PCS; 2016-09-23)
PROC: 0BH17EZ Insertion of Endotracheal Airway into Trachea, Via Natural or Artificial Opening (ICD-10-PCS; 2016-09-24)
PROC: 5A1935Z Respiratory Ventilation, Less than 24 Consecutive Hours (ICD-10-PCS; 2016-09-24)
PROC: 03HB33Z Insertion of Infusion Device into Right Radial Artery, Percutaneous Approach (ICD-10-PCS; 2016-09-24)
DX: K41.30 Unilateral femoral hernia, with obstruction, without gangrene, not specified as recurrent (principal); A41.9 Sepsis, unspecified organism; R11.14 Bilious vomiting; K40.90 Unilateral inguinal hernia, without obstruction or gangrene, not specified as recurrent; E87.6 Hypokalemia; D72.829 Elevated white blood cell count, unspecified; I95.9 Hypotension, unspecified; J44.9 Chronic obstructive pulmonary disease, unspecified; I10 Essential (primary) hypertension; Z85.118 Personal history of other malignant neoplasm of bronchus and lung; K21.9 Gastro-esophageal reflux disease without esophagitis; K59.03 Drug induced constipation; N81.10 Cystocele, unspecified; R32 Unspecified urinary incontinence; M81.0 Age-related osteoporosis without current pathological fracture; Z91.09 Other allergy status, other than to drugs and biological substances; H91.90 Unspecified hearing loss, unspecified ear; F32.9 Major depressive disorder, single episode, unspecified; F41.9 Anxiety disorder, unspecified; Z79.52 Long term (current) use of systemic steroids; Z79.899 Other long term (current) drug therapy; Z87.891 Personal history of nicotine dependence; Z88.8 Allergy status to other drugs, medicaments and biological substances; Z91.048 Other nonmedicinal substance allergy status
CPT/HCPCS: 36415; 44110; 49553; 74177; 80053; 81001; 83605; 83690; 85025; 86140; 88305; 93005; 94664; 96361; 96365; 96366; 96375; 96376; 99285; C9113; J0690; J0694; J1170 ×2; J2250; J2405; J2930; J3480; J7040 ×2; J7120 ×2; Q9963; Q9967; 00830; 36600; 71010; 71010-26; 80048; 82803; 83735; 85018; 85027; 94002; 94640-76; 94660; 99284; J0171; J0330; J1885; J2060; J2370; J2543; J2704; J2920; J3490; J7030; J7060; P9047